=== PATIENT | female | born 1955 | race Caucasian/White ===

== ENCOUNTER 2019-08-22 07:50 | Outpatient (CLI) | payer BC, SELFPAY ==
[2019-08-22 13:29] LABS: Basophils Absolute Auto 0.1 K/mm3 (0.0-0.1); Basophils Percent Auto 1.4 % (0.2-1.2); Eosinophils Absolute Auto 0.4 K/mm3 (0-0.3); Hematocrit 40.9 % (37.0-47.0); Hemoglobin 13.1 g/dL (12.0-15.0); Immature Granulocyte Absolute 0.01 K/mm3 (0.00-0.031); Immature Granulocyte Percent A 0.2 % (0-0.5); Lymphocytes Absolute Auto 1.79 K/mm3 (0.9-3.2); Lymphocytes Percent Auto 30.7 % (18.3-44.2); Mean Corpuscular Hemoglobin 29.6 pg (26-34); Mean Corpuscular Volume 92.3 fl (80-100); Mean Platelet Volume 11.3 fl (7.4-10.4); Monocytes Absolute Auto 0.7 K/mm3 (0.1-0.6); Monocytes Percent Auto 11.1 % (2.6-8.5); Neutrophils Absolute Auto 2.9 K/mm3 (1.3-6.7); Neutrophils Percent Auto 49.6 % (45.5-73.1); Platelet Count Result 277 k/mm3 (150-375); Red Blood Count 4.43 M/mm3 (4.2-5.4); Red Cell Distribution Width 13.3 % (11.5-14.5); White Blood Count 5.8 K/mm3 (4.5-10.0)
[2019-08-22 13:32] LABS: Alanine Aminotransferase 17 U/L (4-35); Albumin Level 4.4 g/dL (3.5-5.1); Alkaline Phosphatase 86 U/L (38-126); Aspartate Amino Transferase 23 U/L (14-36); Bilirubin,Total 0.3 mg/dL (0.2-1.3); Blood Urea Nitrogen 17 mg/dL (7-17); Calcium 9.6 mg/dL (8.4-10.2); Carbon Dioxide 28 mmol/L (22-30); Chloride 99 mmol/L (98-107); Estimated Glomerular Filt Rate > 60; Glucose 81 mg/dL (65-105); Potassium 4.4 mmol/L (3.4-5.0); Sodium 137 mmol/L (137-145)
[2019-08-22 13:48] LABS: Free T4 Free Thyroxine 1.49 ng/mL (0.78-2.19)
[2019-08-24 14:44] LABS: Homocysteine 7.3 umol/L (<10.4)
[2019-08-24 22:14] LABS: CRP, High Sensitivity 0.4 mg/L (***)
== END 2019-08-22 07:51 | disposition home or self-care (01) ==
PROVIDERS: PCP Internal Medicine; Visit Provider Internal Medicine
DX: E78.5 Hyperlipidemia, unspecified (principal); E03.9 Hypothyroidism, unspecified; Z79.899 Other long term (current) drug therapy
CPT/HCPCS: 36415; 80048; 80076; 83090; 84439; 84443; 85025; 86141

== ENCOUNTER → 2019-09-12 07:08 | Outpatient (CLI) | payer BC, SELFPAY ==
--- NOTE | ~2019-09-12 | MM_ITS ---
EXAMINATION: MM screening [facility] BI w nj HISTORY: Screening mammogram TECHNIQUE: Craniocaudal and mediolateral oblique 3-D tomosynthesis images were obtained and synthetic 2-D images were generated. CAD analysis was submitted and interpreted. COMPARISON: Comparison to multiple prior studies sequentially, with oldest reviewed study dated 03/13. BREAST PARENCHYMAL COMPOSITION: There are scattered areas of fibroglandular density. FINDINGS: Bilateral breast asymmetries are stable There is no evidence of suspicious mass, calcificat ion, or architectural distortion to suggest malignancy in either breast. There has been no suspicious interval change. IMPRESSION: 1. No mammographic evidence of malignancy. 2. Recommend routine screening mammography in one year. BI-RADS Category 1: Negative Reviewed, dictated and finalized at location A. 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
== END ==
PROVIDERS: Visit Provider Obstetrics & Gynecology
DX: Z12.31 Encounter for screening mammogram for malignant neoplasm of breast (principal)
CPT/HCPCS: 77063; 77067

== ENCOUNTER 2019-12-24 06:41 | Outpatient (CLI) | payer BC, SELFPAY ==
[2019-12-24 07:29] LABS: Basophils Absolute Auto 0.1 K/mm3 (0.0-0.1); Basophils Percent Auto 1.2 % (0.2-1.2); Eosinophils Absolute Auto 0.5 K/mm3 (0-0.3); Hematocrit 40.6 % (37.0-47.0); Hemoglobin 13.3 g/dL (12.0-15.0); Immature Granulocyte Absolute 0.01 K/mm3 (0.00-0.031); Immature Granulocyte Percent A 0.2 % (0-0.5); Lymphocytes Absolute Auto 2.16 K/mm3 (0.9-3.2); Lymphocytes Percent Auto 36.1 % (18.3-44.2); Mean Corpuscular HGB Conc 32.8 g/dl (32-36); Mean Corpuscular Hemoglobin 28.9 pg (26-34); Mean Corpuscular Volume 88.1 fl (80-100); Mean Platelet Volume 10.6 fl (7.4-10.4); Monocytes Absolute Auto 0.7 K/mm3 (0.1-0.6); Neutrophils Absolute Auto 2.5 K/mm3 (1.3-6.7); Neutrophils Percent Auto 42.5 % (45.5-73.1); Platelet Count Result 264 k/mm3 (150-375); Red Blood Count 4.61 M/mm3 (4.2-5.4); Red Cell Distribution Width 13.4 % (11.5-14.5)
[2019-12-24 07:50] LABS: Blood Urea Nitrogen 15 mg/dL (7-17); Carbon Dioxide 26 mmol/L (22-30); Chloride 105 mmol/L (98-107); Cholesterol 168 mg/dL (0-200); Estimated Glomerular Filt Rate > 60; Glucose 94 mg/dL (65-105); HDL Direct 62 mg/dL; Potassium 4.1 mmol/L (3.4-5.0); Sodium 138 mmol/L (137-145); Triglycerides 112 mg/dL (<150)
[2019-12-24 08:01] LABS: LDL Cholesterol Direct 78 mg/dL
[2019-12-24 08:20] LABS: Thyroid Stimulating Hormone 0.107 uIU/mL (0.465-4.680)
[2019-12-24 08:27] LABS: Free T4 Free Thyroxine 1.45 ng/mL (0.78-2.19)
== END 2019-12-24 06:42 | disposition home or self-care (01) ==
PROVIDERS: PCP Internal Medicine; Visit Provider Internal Medicine
DX: E03.9 Hypothyroidism, unspecified (principal)
CPT/HCPCS: 36415; 80048; 80061; 84439; 84443; 85025

== ENCOUNTER → 2020-02-09 07:24 | Outpatient (CLI) | payer BC, SELFPAY ==
--- NOTE | ~2020-02-09 | XR_ITS ---
EXAMINATION: XR hip RT min 2V DATE: 02/09/2020 07:44 INDICATION: Right hip pain. TECHNIQUE: 2 views of right hip were obtained. COMPARISON: None. FINDINGS: Bone alignment is normal. No fracture. There is mild right hip osteoarthritis. IMPRESSION: 1. Mild right hip osteoarthritis. Reviewed, dictated and finalized at location A.
== END ==
PROVIDERS: PCP Internal Medicine; Visit Provider Internal Medicine
DX: M16.11 Unilateral primary osteoarthritis, right hip (principal)
CPT/HCPCS: 73502

== ENCOUNTER 2020-04-19 07:36 | Outpatient (CLI) | payer BC, SELFPAY ==
[2020-04-19 08:26] LABS: Alanine Aminotransferase 16 U/L (4-35); Albumin Level 4.4 g/dL (3.5-5.1); Alkaline Phosphatase 80 U/L (38-126); Anion Gap 10 mmol/L (8-16); Aspartate Amino Transferase 22 U/L (14-36); Bilirubin,Total 0.5 mg/dL (0.2-1.3); Blood Urea Nitrogen 11 mg/dL (7-17); Calcium 9.5 mg/dL (8.4-10.2); Carbon Dioxide 29 mmol/L (22-30); Chloride 102 mmol/L (98-107); Cholesterol 152 mg/dL (0-200); Estimated Glomerular Filt Rate > 60; Glucose 100 mg/dL (65-105); HDL Direct 62 mg/dL; Potassium 4.1 mmol/L (3.4-5.0); Sodium 141 mmol/L (137-145); Triglycerides 111 mg/dL (<150)
[2020-04-19 08:27] LABS: Hemoglobin A1C 5.3 % (<5.7)
[2020-04-19 08:38] LABS: LDL Cholesterol Direct 66 mg/dL
[2020-04-19 08:56] LABS: Thyroid Stimulating Hormone 0.117 uIU/mL (0.465-4.680)
[2020-04-19 08:58] LABS: Free T4 Free Thyroxine 1.55 ng/mL (0.78-2.19)
[2020-04-22 06:37] LABS: Homocysteine 5.7 umol/L (<10.4)
== END 2020-04-19 07:37 | disposition home or self-care (01) ==
PROVIDERS: PCP Internal Medicine; Visit Provider Internal Medicine
DX: Z79.899 Other long term (current) drug therapy (principal); E78.2 Mixed hyperlipidemia; E03.9 Hypothyroidism, unspecified; R79.89 Other specified abnormal findings of blood chemistry
CPT/HCPCS: 36415; 80053; 80061; 83036; 83090; 84439; 84443

== ENCOUNTER 2020-09-19 07:12 | Outpatient (CLI) | payer MEDICARE, SELFPAY ==
[2020-09-19 08:00] LABS: Anion Gap 4 mmol/L (8-16); Blood Urea Nitrogen 14 mg/dL (7-17); Calcium 9.1 mg/dL (8.4-10.2); Carbon Dioxide 31 mmol/L (22-30); Chloride 106 mmol/L (98-107); Cholesterol 161 mg/dL (0-200); Estimated Glomerular Filt Rate > 60; Glucose 93 mg/dL (65-105); HDL Direct 65 mg/dL; Sodium 141 mmol/L (137-145); Triglycerides 92 mg/dL (<150)
[2020-09-19 08:11] LABS: LDL Cholesterol Direct 67 mg/dL
[2020-09-19 08:30] LABS: Thyroid Stimulating Hormone < 0.015 uIU/mL (0.465-4.680)
== END 2020-09-19 07:13 | disposition home or self-care (01) ==
PROVIDERS: PCP Internal Medicine; Visit Provider Internal Medicine
DX: E03.9 Hypothyroidism, unspecified (principal); E78.2 Mixed hyperlipidemia; Z79.899 Other long term (current) drug therapy
CPT/HCPCS: 36415; 80048; 80061; 84439; 84443

== ENCOUNTER → 2020-11-29 17:39 | Outpatient (CLI) | payer MEDICARE, BC, SELFPAY ==
--- NOTE | ~2020-11-29 | DEXA_ITS ---
Bone Density Report Name: Annemarie Parker Age: 65 Sex: Female Ethnicity: White Date of : 1955 Indication: osteopenia; parental hip fracture; height loss; postmenopausal Referring Provider: Romaine, Laly Gutierrez Study: Bone densitometry was performed. Exam Date: November 29, 2020 Accession number: [id number] Bone Density: Region BMD T-score Z-score Classification Femoral Neck (Left) 0.659 -1.7 -0.2 Osteopenia Total Hip (Left) 0.780 -1.3 -0.1 Osteopenia Femoral Neck (Right) 0.734 -1.0 0.5 Normal Total Hip (Right) 0.801 -1.2 0.1 Osteopenia Total Hip Mean 0.791 -1.3 0.0 Osteopenia World Health Organization criteria for BMD impression classify patients as: Normal (T-score at or above -1.0), Osteopenia (T-score between -1.0 and -2.5), or Osteoporosis (T-score at or below -2.5). 10-year Fracture Risk(1): Major Osteoporotic Fracture 18% Hip Fracture 1.4% Reported Risk Factors: [place] (), Neck BMD=0.659, BMI=27.0, parental fracture (1) FRAX(R) Version 3.08. Fracture probability calculated for an untreated patient. Fracture probability may be lower if the patient has received treatment. Previous Exams: Region Exam Age BMD T-score BMD Change BMD Change Date g/cm2 vs Baseline vs Previous Total Hip(Left) 11/29/2020 65 0.780 -1.3 -0.027 -0.039* 09/01/2018 63 0.819 -1.0 0.012 0.017 06/19/2015 60 0.802 -1.1 -0.005 -0.005 10/06/2003 48 0.807 -1.1 Total Hip(Right) 11/29/2020 65 0.801 -1.2 0.011 -0.006 09/01/2018 63 0.807 -1.1 0.017 -0.009 06/19/2015 60 0.816 -1.0 0.026 0.026 10/06/2003 48 0.791 -1.2 *Denotes significance at 95% confidence level, LSC for Total Hip = 0.027 g/cm2 Clinical Information Provided by Patient: Parent has had a hip fracture Has used the following medications: Vitamin D, Calcium Patient maximum height was 68 Menopause Age: 47 No regular weight bearing exercise Drinks caffeinated beverages Onset of menses at age 14 Number of children 2 Impression: The patient has low bone mass, based on the Left Femoral Neck T-score. The patient has an estimated ten-year risk of hip fracture of 1.4% and an estimated ten-year risk of major fracture of 18%, based on the WHO FRAX algorithm. The patient has risk factors, including: parental hip fracture. The BMD for the Total Hip(Left) decreased, changing by -0.039 since the last DXA exam.
--- NOTE | ~2020-11-29 | MM_ITS ---
EXAMINATION: MM screening [facility] BI w nj HISTORY: Screening mammogram TECHNIQUE: Craniocaudal and mediolateral oblique 3-D tomosynthesis images were obtained and synthetic 2-D images were generated. CAD analysis was submitted and interpreted. COMPARISON: 09/12/2019, 09/01/2018, 06/29/2017 BREAST PARENCHYMAL COMPOSITION: The breasts are heterogeneously dense, which may obscure small masses . FINDINGS: There is no evidence of suspicious mass, calcification, or architectural distortion to sugg est malignancy in either breast. There has been no suspicious interval change. IMPRESSION: 1. No mammographic evidence of malignancy. 2. Recommend routine screening mammography in one year. BI-RADS Category 1: Negative Reviewed, dictated and finalized at location A.
== END ==
PROVIDERS: Visit Provider Obstetrics & Gynecology
DX: Z12.31 Encounter for screening mammogram for malignant neoplasm of breast (principal); Z78.0 Asymptomatic menopausal state
CPT/HCPCS: 77063; 77067; 77080

== ENCOUNTER 2021-04-16 07:38 | Outpatient (CLI) | payer MEDICARE, BC, SELFPAY ==
[2021-04-16 08:27] LABS: Alanine Aminotransferase 24 U/L (4-35); Albumin Level 4.6 g/dL (3.5-5.1); Alkaline Phosphatase 88 U/L (38-126); Anion Gap 9 mmol/L (8-16); Aspartate Amino Transferase 27 U/L (14-36); Bilirubin,Total 0.7 mg/dL (0.2-1.3); Blood Urea Nitrogen 14 mg/dL (7-17); Calcium 9.4 mg/dL (8.4-10.2); Carbon Dioxide 25 mmol/L (22-30); Chloride 105 mmol/L (98-107); Cholesterol 182 mg/dL (0-200); Estimated Glomerular Filt Rate > 60; Glucose 96 mg/dL (65-110); HDL Direct 78 mg/dL; Potassium 4.2 mmol/L (3.4-5.0); Sodium 139 mmol/L (137-145); Triglycerides 118 mg/dL (<150)
[2021-04-16 08:28] LABS: Hemoglobin A1C 5.5 % (<5.7)
[2021-04-16 08:36] LABS: Add Urine Microscopic? YES; Appearance Urine Clear (Clear); Bilirubin Urine Negative (Negative); Blood Urine 1+ (Negative); Color Urine Straw (Yellow); Glucose Urine UA Negative (Negative); Ketones Urine Negative (Negative); Leukocyte Esterase Ur 1+ LEU/UL (Negative); Nitrate Urine Negative (Negative); Protein Urine Negative (Negative); RBC Urine 0-2 /hpf (0-2); Specific Grav Ur 1.008 (1.001-1.035); Squamous Epithelial Cell Urine Rare /hpf (Few); Urobilinogen Urine Negative mg/dL (<2.0)
[2021-04-16 08:39] LABS: LDL Cholesterol Direct 80 mg/dL
[2021-04-16 08:57] LABS: Thyroid Stimulating Hormone 0.068 uIU/mL (0.465-4.680)
[2021-04-16 09:21] LABS: Free T4 Free Thyroxine 1.78 ng/mL (0.78-2.19)
== END 2021-04-16 07:39 | disposition home or self-care (01) ==
PROVIDERS: PCP Internal Medicine; Visit Provider Internal Medicine
DX: E78.2 Mixed hyperlipidemia (principal); E03.9 Hypothyroidism, unspecified; Z51.81 Encounter for therapeutic drug level monitoring; Z79.899 Other long term (current) drug therapy
CPT/HCPCS: 36415; 80053; 80061; 81001; 83036; 84439; 84443; 87086

== ENCOUNTER 2021-10-28 06:47 | Outpatient (CLI) | payer MEDICARE, SELFPAY ==
[2021-10-28 07:14] LABS: Basophils Absolute Auto 0.1 K/mm3 (0.0-0.1); Basophils Percent Auto 1.8 % (0.2-1.2); Eosinophils Absolute Auto 0.4 K/mm3 (0-0.3); Eosinophils Percent Auto 6.9 % (0-4.4); Hematocrit 39.4 % (37.0-47.0); Hemoglobin 12.9 g/dL (12.0-15.0); Immature Granulocyte Absolute 0.01 K/mm3 (0.00-0.031); Immature Granulocyte Percent A 0.2 % (0-0.5); Lymphocytes Absolute Auto 2.13 K/mm3 (0.9-3.2); Lymphocytes Percent Auto 37.5 % (18.3-44.2); Mean Corpuscular HGB Conc 32.7 g/dl (32-36); Mean Corpuscular Hemoglobin 29.5 pg (26-34); Mean Platelet Volume 9.8 fl (7.4-10.4); Monocytes Absolute Auto 0.8 K/mm3 (0.1-0.6); Monocytes Percent Auto 14.3 % (2.6-8.5); Neutrophils Absolute Auto 2.2 K/mm3 (1.3-6.7); Neutrophils Percent Auto 39.3 % (45.5-73.1); Platelet Count Result 258 k/mm3 (150-375); Red Blood Count 4.38 M/mm3 (4.2-5.4); Red Cell Distribution Width 12.8 % (11.5-14.5); White Blood Count 5.7 K/mm3 (4.5-10.0)
[2021-10-28 07:30] LABS: Alanine Aminotransferase 16 U/L (4-35); Albumin Level 4.4 g/dL (3.5-5.1); Alkaline Phosphatase 69 U/L (38-126); Anion Gap 6 mmol/L (8-16); Aspartate Amino Transferase 25 U/L (14-36); Bilirubin,Total 0.5 mg/dL (0.2-1.3); Blood Urea Nitrogen 13 mg/dL (7-17); Calcium 8.9 mg/dL (8.4-10.2); Carbon Dioxide 28 mmol/L (22-30); Chloride 104 mmol/L (98-107); Cholesterol 143 mg/dL (0-200); Estimated Glomerular Filt Rate > 60; Glucose 89 mg/dL (65-110); HDL Direct 60 mg/dL; Sodium 138 mmol/L (137-145); Triglycerides 56 mg/dL (<150)
[2021-10-28 07:41] LABS: LDL Cholesterol Direct 51 mg/dL
[2021-10-28 07:58] LABS: Thyroid Stimulating Hormone 0.162 uIU/mL (0.465-4.680)
[2021-10-28 07:59] LABS: Free T4 Free Thyroxine 1.56 ng/mL (0.78-2.19); Vitamin D 25 Hydroxy 68.8 ng/mL
== END 2021-10-28 06:48 | disposition home or self-care (01) ==
LOC: ANHLAB 06:49
PROVIDERS: PCP Internal Medicine; Visit Provider Internal Medicine
DX: E78.2 Mixed hyperlipidemia (principal); Z51.81 Encounter for therapeutic drug level monitoring; Z79.899 Other long term (current) drug therapy; E03.9 Hypothyroidism, unspecified; E55.9 Vitamin D deficiency, unspecified
CPT/HCPCS: 36415; 80053; 80061; 82306; 84439; 84443; 85025

== ENCOUNTER → 2022-01-29 15:06 | Outpatient (CLI) | payer MEDICARE, BC, SELFPAY ==
--- NOTE | ~2022-01-29 | XR_ITS ---
XR lumbar spine 2-3V 01/29/2022 15:24 Indication: Back pain Procedure: 3 views lumbar spine Comparison: No prior studies for comparison. Findings: There is scoliosis. Márquez rods are noted overlying the lower thoracic and lumbar spine . There is disc narrowing at all lumbar levels. No acute fracture or medical malalignment. No evidenc e for spondylolisthesis. There is moderate lower lumbar facet hypertrophy. There is ventral osteophyt e formation at L3-4 and L4-5. Impression: 1: Moderate lumbar spondylosis with levoscoliosis. Reviewed, dictated and finalized at location A. Impression: 1: Moderate lumbar spondylosis with levoscoliosis.
--- NOTE | ~2022-01-29 | XR_ITS ---
XR thoracic spine 3V DATE: 01/29/2022 15:25 INDICATION: Back pain TECHNIQUE: AP, lateral, swimmer views COMPARISON: None FINDINGS: There is 70 degrees rotatory dextroscoliosis measured from T5 to T11. Bilateral spinal rods from the mid to lower thoracic spine on the right and from the mid thoracic to the upper lumbar spine on the left. Diffuse osteopenia. No apparent fracture or bone destruction of the thoracic spine is noted. Mild degenerative change. No paraspinal soft tissue thickening is detected. IMPRESSION: 17 degrees rotatory dextroscoliosis of the thoracic spine Osteopenia Mild degenerative change. Reviewed, dictated and finalized at location A.
--- NOTE | ~2022-01-29 | XR_ITS ---
XR_CERV2-3V_CR 01/29/2022 15:24 Indication: Cervicalgia Procedure: 3 view cervical spine Comparison: No prior studies for comparison. Findings: Vertebral body heights are maintained. Mild degenerative disc disease at C5-6 and C6-7. The re is mild multilevel uncinate hypertrophy. No prevertebral soft tissue swelling. No fracture or trau matic malalignment. Odontoid process within normal limits. Impression: 1: Mild cervical spondylosis. Reviewed, dictated and finalized at location A. Impression: 1: Mild cervical spondylosis.
== END ==
PROVIDERS: PCP Internal Medicine; Visit Provider Internal Medicine
DX: M47.815 Spondylosis without myelopathy or radiculopathy, thoracolumbar region (principal); M41.9 Scoliosis, unspecified; M47.813 Spondylosis without myelopathy or radiculopathy, cervicothoracic region
CPT/HCPCS: 72040; 72072; 72100

== ENCOUNTER → 2022-03-05 12:35 | Outpatient (CLI) | payer MEDICARE, BC, SELFPAY ==
--- NOTE | ~2022-03-05 | MM_ITS ---
EXAMINATION: MM screening [facility] BI w nj HISTORY: Screening mammogram TECHNIQUE: Craniocaudal and mediolateral oblique 3-D tomosynthesis images were obtained and synthetic 2-D images were generated. CAD analysis was submitted and interpreted. COMPARISON: 11/29/2020, 09/08/2019, , 06/29/2017 bilateral screening mammogram examinations BREAST PARENCHYMAL COMPOSITION: The breasts are heterogeneously dense, which may obscure small masses . FINDINGS: Stable mild fibroglandular asymmetry. There is no evidence of suspicious mass, calcificatio n, or architectural distortion to suggest malignancy in either breast. There has been no suspicious i nterval change. IMPRESSION: 1. No mammographic evidence of malignancy. 2. Recommend routine screening mammography in one year. BI-RADS Category 2: Benign finding(s). Reviewed, dictated and finalized at location A.
== END ==
PROVIDERS: PCP Nurse Practitioner Obstetrics & Gynecology; Visit Provider Nurse Practitioner Obstetrics & Gynecology
DX: Z12.31 Encounter for screening mammogram for malignant neoplasm of breast (principal)
CPT/HCPCS: 77063; 77067

== ENCOUNTER 2022-05-14 07:27 | Outpatient (CLI) | payer MEDICARE, SELFPAY ==
[2022-05-14 07:44] LABS: Basophils Absolute Auto 0.1 K/mm3 (0.0-0.1); Basophils Percent Auto 1.6 % (0.2-1.2); Eosinophils Absolute Auto 0.3 K/mm3 (0-0.3); Eosinophils Percent Auto 4.7 % (0-4.4); Hematocrit 40.9 % (37.0-47.0); Hemoglobin 13.2 g/dL (12.0-15.0); Immature Granulocyte Absolute 0.01 K/mm3 (0.00-0.031); Immature Granulocyte Percent A 0.2 % (0-0.5); Lymphocytes Absolute Auto 1.94 K/mm3 (0.9-3.2); Lymphocytes Percent Auto 33.7 % (18.3-44.2); Mean Corpuscular HGB Conc 32.3 g/dl (32-36); Mean Corpuscular Hemoglobin 29.8 pg (26-34); Mean Corpuscular Volume 92.3 fl (80-100); Mean Platelet Volume 9.8 fl (7.4-10.4); Monocytes Absolute Auto 0.7 K/mm3 (0.1-0.6); Monocytes Percent Auto 12.7 % (2.6-8.5); Neutrophils Absolute Auto 2.7 K/mm3 (1.3-6.7); Neutrophils Percent Auto 47.1 % (45.5-73.1); Platelet Count Result 260 k/mm3 (150-375); Red Blood Count 4.43 M/mm3 (4.2-5.4); Red Cell Distribution Width 13.3 % (11.5-14.5); White Blood Count 5.8 K/mm3 (4.5-10.0)
[2022-05-14 07:50] LABS: Add Urine Microscopic? NO; Appearance Urine Clear (Clear); Bilirubin Urine Negative (Negative); Blood Urine Negative (Negative); Color Urine Straw (Yellow); Glucose Urine UA Negative (Negative); Ketones Urine Negative (Negative); Leukocyte Esterase Ur Negative LEU/UL (Negative); Nitrate Urine Negative (Negative); Protein Urine Negative (Negative); Urobilinogen Urine Negative mg/dL (<2.0)
[2022-05-14 07:58] LABS: Alanine Aminotransferase 20 U/L (6-35); Albumin Level 4.4 g/dL (3.5-5.1); Alkaline Phosphatase 69 U/L (38-126); Anion Gap 11 mmol/L (8-16); Aspartate Amino Transferase 24 U/L (14-36); Bilirubin,Total 0.5 mg/dL (0.2-1.3); Blood Urea Nitrogen 19 mg/dL (7-17); Calcium 8.9 mg/dL (8.4-10.2); Carbon Dioxide 29 mmol/L (22-30); Chloride 101 mmol/L (98-107); Cholesterol 164 mg/dL (0-200); Estimated Glomerular Filt Rate > 60; Glucose 93 mg/dL (65-110); HDL Direct 73 mg/dL; Potassium 3.9 mmol/L (3.4-5.0); Sodium 141 mmol/L (137-145); Triglycerides 62 mg/dL (<150)
[2022-05-14 08:08] LABS: LDL Cholesterol Direct 63 mg/dL
[2022-05-14 08:14] LABS: Hemoglobin A1C 5.4 % (<5.7)
[2022-05-14 08:28] LABS: Thyroid Stimulating Hormone 0.441 uIU/mL (0.465-4.680)
[2022-05-14 09:02] LABS: Free T4 Free Thyroxine 1.46 ng/mL (0.78-2.19)
== END 2022-05-14 07:28 | disposition home or self-care (01) ==
PROVIDERS: PCP Nurse Practitioner Obstetrics & Gynecology; Visit Provider Internal Medicine
DX: E03.9 Hypothyroidism, unspecified (principal); E78.2 Mixed hyperlipidemia; Z79.899 Other long term (current) drug therapy
CPT/HCPCS: 36415; 80053; 80061; 81003; 83036; 84439; 84443; 85025

== ENCOUNTER 2022-11-28 07:07 | Outpatient (CLI) | payer MEDICARE, SELFPAY ==
[2022-11-28 07:27] LABS: Basophils Absolute Auto 0.1 K/mm3 (0.0-0.1); Basophils Percent Auto 1.9 % (0.2-1.2); Eosinophils Absolute Auto 0.4 K/mm3 (0-0.3); Eosinophils Percent Auto 7.2 % (0-4.4); Hemoglobin 12.9 g/dL (12.0-15.0); Immature Granulocyte Absolute 0.01 K/mm3 (0.00-0.031); Immature Granulocyte Percent A 0.2 % (0-0.5); Lymphocytes Absolute Auto 1.65 K/mm3 (0.9-3.2); Lymphocytes Percent Auto 31.4 % (18.3-44.2); Mean Corpuscular HGB Conc 32.3 g/dl (32-36); Mean Corpuscular Hemoglobin 29.3 pg (26-34); Mean Corpuscular Volume 90.9 fl (80-100); Mean Platelet Volume 9.6 fl (7.4-10.4); Monocytes Absolute Auto 0.7 K/mm3 (0.1-0.6); Monocytes Percent Auto 12.8 % (2.6-8.5); Neutrophils Absolute Auto 2.4 K/mm3 (1.3-6.7); Neutrophils Percent Auto 46.5 % (45.5-73.1); Platelet Count Result 256 k/mm3 (150-375); Red Cell Distribution Width 12.9 % (11.5-14.5); White Blood Count 5.3 K/mm3 (4.5-10.0)
[2022-11-28 07:42] LABS: Alanine Aminotransferase 21 U/L (6-35); Albumin Level 4.3 g/dL (3.5-5.1); Alkaline Phosphatase 74 U/L (38-126); Anion Gap 5 mmol/L (8-16); Aspartate Amino Transferase 25 U/L (14-36); Bilirubin,Total 0.6 mg/dL (0.2-1.3); Blood Urea Nitrogen 14 mg/dL (7-17); Calcium 9.1 mg/dL (8.4-10.2); Carbon Dioxide 31 mmol/L (22-30); Chloride 102 mmol/L (98-107); Cholesterol 171 mg/dL (0-200); Estimated Glomerular Filt Rate > 60; Glucose 92 mg/dL (65-110); HDL Direct 80 mg/dL; Potassium 4.5 mmol/L (3.4-5.0); Sodium 138 mmol/L (137-145); Triglycerides 77 mg/dL (<150)
[2022-11-28 07:53] LABS: LDL Cholesterol Direct 65 mg/dL
[2022-11-28 08:03] LABS: Vitamin D 25 Hydroxy 61.4 ng/mL
[2022-11-28 08:10] LABS: Thyroid Stimulating Hormone 0.188 uIU/mL (0.465-4.680)
== END 2022-11-28 07:08 | disposition home or self-care (01) ==
PROVIDERS: PCP Internal Medicine; Visit Provider Internal Medicine
DX: E78.2 Mixed hyperlipidemia (principal); E03.9 Hypothyroidism, unspecified; E55.9 Vitamin D deficiency, unspecified; Z79.899 Other long term (current) drug therapy
CPT/HCPCS: 36415; 80053; 80061; 82306; 84439; 84443; 85025

== ENCOUNTER 2022-12-29 07:37 | Outpatient (CLI) | payer MEDICARE, SELFPAY ==
[2022-12-29 09:34] LABS: Free T4 Free Thyroxine 1.46 ng/mL (0.78-2.19)
[2022-12-29 09:44] LABS: Thyroid Stimulating Hormone 0.308 uIU/mL (0.465-4.680)
== END 2022-12-29 07:38 | disposition home or self-care (01) ==
PROVIDERS: PCP Internal Medicine; Visit Provider Internal Medicine
DX: E03.9 Hypothyroidism, unspecified (principal); Z79.899 Other long term (current) drug therapy
CPT/HCPCS: 36415; 84439; 84443

== ENCOUNTER → 2023-05-11 13:19 | Outpatient (CLI) | payer MEDICARE, SELFPAY ==
--- NOTE | ~2023-05-11 | MM_ITS ---
EXAMINATION: MM screening [facility] BI w nj HISTORY: Screening mammogram TECHNIQUE: Craniocaudal and mediolateral oblique 3-D tomosynthesis images were obtained and synthetic 2-D images were generated. CAD analysis was submitted and interpreted. COMPARISON: 03/05/2022, 11/29/2020, 09/08/2019 bilateral screening mammogram examinations BREAST PARENCHYMAL COMPOSITION: The breasts are heterogeneously dense, which may obscure small masses . FINDINGS: Occasional scattered benign calcifications. There is no evidence of suspicious mass, calcif ication, or architectural distortion to suggest malignancy in either breast. There has been no suspic ious interval change. IMPRESSION: 1. Benign findings. No mammographic evidence of malignancy. 2. Recommend routine screening mammography in one year. BI-RADS Category 2: Benign finding(s). Reviewed, dictated and finalized at location A.
== END ==
PROVIDERS: PCP Nurse Practitioner Obstetrics & Gynecology; Visit Provider Nurse Practitioner Obstetrics & Gynecology
DX: Z12.31 Encounter for screening mammogram for malignant neoplasm of breast (principal)
CPT/HCPCS: 77063; 77067

== ENCOUNTER 2023-06-15 08:05 | Outpatient (CLI) | payer MEDICARE, SELFPAY ==
[2023-06-15 09:06] LABS: Appearance Urine Clear (Clear); Bacteria Urine None Seen /hpf; Bilirubin Urine Negative (Negative); Blood Urine Negative (Negative); Color Urine Yellow (Yellow); Glucose Urine UA Negative (Negative); Ketones Urine Negative (Negative); Leukocyte Esterase Ur 1+ LEU/UL (Negative); Nitrate Urine Negative (Negative); Non Pathogenic Casts 0-2; Protein Urine Negative (Negative); RBC Urine 0-2 /hpf (0-2); Squamous Epithelial Cell Urine None seen /hpf (Few); Urobilinogen Urine 0.2 mg/dL (<2.0)
[2023-06-15 09:15] LABS: Alanine Aminotransferase 16 U/L (6-35); Albumin Level 4.2 g/dL (3.5-5.1); Alkaline Phosphatase 86 U/L (38-126); Anion Gap 9 mmol/L (8-16); Aspartate Amino Transferase 22 U/L (14-36); Bilirubin,Total 0.5 mg/dL (0.2-1.3); Blood Urea Nitrogen 16 mg/dL (7-17); Calcium 9.3 mg/dL (8.4-10.2); Carbon Dioxide 28 mmol/L (22-30); Chloride 103 mmol/L (98-107); Cholesterol 171 mg/dL (0-200); Estimated Glomerular Filt Rate > 60; Glucose 85 mg/dL (65-110); HDL Direct 80 mg/dL; Potassium 4.2 mmol/L (3.4-5.0); Sodium 140 mmol/L (137-145); Triglycerides 60 mg/dL (<150)
[2023-06-15 09:18] LABS: Hemoglobin A1C 5.1 % (<5.7)
[2023-06-15 09:27] LABS: LDL Cholesterol Direct 68 mg/dL
[2023-06-15 09:45] LABS: Free T4 Free Thyroxine 1.31 ng/mL (0.78-2.19)
[2023-06-15 09:45] LABS: Add Urine Microscopic? YES
== END 2023-06-15 08:06 | disposition home or self-care (01) ==
PROVIDERS: PCP Nurse Practitioner Obstetrics & Gynecology; Visit Provider Internal Medicine
DX: Z13.1 Encounter for screening for diabetes mellitus (principal); Z79.899 Other long term (current) drug therapy; E03.9 Hypothyroidism, unspecified; E78.2 Mixed hyperlipidemia
CPT/HCPCS: 36415; 80053; 80061; 81001; 83036; 84439; 84443; 87086

== ENCOUNTER 2023-12-28 07:54 | Outpatient (CLI) | payer MEDICARE, SELFPAY ==
[2023-12-28 13:43] LABS: Appearance Urine Clear (Clear); Bacteria Urine None Seen /hpf; Bilirubin Urine Negative (Negative); Blood Urine Negative (Negative); Color Urine Yellow (Yellow); Glucose Urine UA Negative (Negative); Ketones Urine Negative (Negative); Leukocyte Esterase Ur 2+ LEU/UL (Negative); Nitrate Urine Negative (Negative); Non Pathogenic Casts 0-2; Protein Urine Negative (Negative); RBC Urine 0-2 /hpf (0-2); Squamous Epithelial Cell Urine None Seen /hpf (Few); Urobilinogen Urine 0.2 mg/dL (<2.0)
[2023-12-28 13:50] LABS: Alanine Aminotransferase 17 U/L (6-35); Albumin Level 4.4 g/dL (3.5-5.1); Alkaline Phosphatase 92 U/L (38-126); Anion Gap 6 mmol/L (4-12); Aspartate Amino Transferase 47 U/L (14-36); Bilirubin,Total 0.7 mg/dL (0.2-1.3); Blood Urea Nitrogen 16 mg/dL (7-17); Calcium 9.2 mg/dL (8.4-10.2); Carbon Dioxide 28 mmol/L (22-30); Chloride 104 mmol/L (98-107); Cholesterol 183 mg/dL (0-200); Estimated Glomerular Filt Rate > 60; Glucose 86 mg/dL (65-110); HDL Direct 74 mg/dL; Potassium 4.2 mmol/L (3.4-5.0); Sodium 138 mmol/L (137-145); Triglycerides 104 mg/dL (<150)
[2023-12-28 13:54] LABS: Add Urine Microscopic? YES
[2023-12-28 14:01] LABS: LDL Cholesterol Direct 80 mg/dL
[2023-12-28 14:06] LABS: Free T4 Free Thyroxine 1.19 ng/mL (0.78-2.19); Vitamin D 25 Hydroxy 59.8 ng/mL
[2023-12-28 14:19] LABS: Thyroid Stimulating Hormone 0.326 uIU/mL (0.465-4.680)
== END 2023-12-28 07:55 | disposition home or self-care (01) ==
LOC: ANHWCLAB 07:54
PROVIDERS: PCP Internal Medicine; Visit Provider Internal Medicine
DX: E03.9 Hypothyroidism, unspecified (principal); E55.9 Vitamin D deficiency, unspecified; Z79.899 Other long term (current) drug therapy; E78.2 Mixed hyperlipidemia
CPT/HCPCS: 36415; 80053; 80061; 81001; 82306; 84439; 84443; 87086

== ENCOUNTER 2024-06-30 07:45 | Outpatient (CLI) | payer MEDICARE, SELFPAY ==
[2024-06-30 08:09] LABS: Basophils Absolute Auto 0.1 K/mm3 (0.0-0.1); Basophils Percent Auto 1.7 % (0.2-1.2); Eosinophils Absolute Auto 0.3 K/mm3 (0-0.3); Hematocrit 39.8 % (37.0-47.0); Hemoglobin 13.1 g/dL (12.0-15.0); Immature Granulocyte Absolute 0.01 K/mm3 (0.00-0.031); Immature Granulocyte Percent A 0.2 % (0-0.5); Lymphocytes Absolute Auto 1.84 K/mm3 (0.9-3.2); Lymphocytes Percent Auto 35.2 % (18.3-44.2); Mean Corpuscular HGB Conc 32.9 g/dl (32-36); Mean Corpuscular Hemoglobin 29.6 pg (26-34); Mean Corpuscular Volume 89.8 fl (80-100); Mean Platelet Volume 9.9 fl (7.4-10.4); Monocytes Absolute Auto 0.7 K/mm3 (0.1-0.6); Monocytes Percent Auto 12.8 % (2.6-8.5); Neutrophils Absolute Auto 2.4 K/mm3 (1.3-6.7); Neutrophils Percent Auto 45.1 % (45.5-73.1); Platelet Count Result 273 k/mm3 (150-375); Red Blood Count 4.43 M/mm3 (4.2-5.4); Red Cell Distribution Width 12.8 % (11.5-14.5); White Blood Count 5.2 K/mm3 (4.5-10.0)
[2024-06-30 08:20] LABS: Alanine Aminotransferase 18 U/L (6-35); Albumin Level 4.2 g/dL (3.5-5.1); Alkaline Phosphatase 100 U/L (38-126); Anion Gap 5 mmol/L (4-12); Aspartate Amino Transferase 23 U/L (14-36); Bilirubin,Total 0.6 mg/dL (0.2-1.3); Blood Urea Nitrogen 15 mg/dL (7-17); Calcium 9.4 mg/dL (8.4-10.2); Carbon Dioxide 27 mmol/L (22-30); Chloride 106 mmol/L (98-107); Cholesterol 197 mg/dL (0-200); Estimated Glomerular Filt Rate > 60; Glucose 91 mg/dL (65-110); HDL Direct 72 mg/dL; Potassium 4.2 mmol/L (3.4-5.0); Sodium 138 mmol/L (137-145); Triglycerides 140 mg/dL (<150)
[2024-06-30 08:31] LABS: LDL Cholesterol Direct 80 mg/dL
[2024-06-30 08:47] LABS: Thyroid Stimulating Hormone 0.395 uIU/mL (0.465-4.680)
[2024-06-30 09:03] LABS: Free T4 Free Thyroxine 1.33 ng/dL (0.78-2.19)
== END 2024-06-30 07:46 | disposition home or self-care (01) ==
PROVIDERS: PCP Internal Medicine; Visit Provider Internal Medicine
DX: E78.2 Mixed hyperlipidemia (principal); E03.9 Hypothyroidism, unspecified; Z79.899 Other long term (current) drug therapy
CPT/HCPCS: 36415; 80053; 80061; 84439; 84443; 85025

== ENCOUNTER 2024-07-18 10:07 | Outpatient (CLI) | payer MEDICARE, SELFPAY ==
--- NOTE | ~2024-07-18 | XR_ITS ---
EXAMINATION: XR wrist RT min 3V DATE: 07/18/2024 10:22 INDICATION: Right wrist pain TECHNIQUE: Posteroanterior, ulnar deviation, oblique, and lateral views of the right wrist were obtai lia. COMPARISON: none FINDINGS: Bone alignment is normal. No fracture. Mild osteoarthritis at the first carpometacarpal joint and min imal to mild osteoarthritis at the metacarpophalangeal and interphalangeal joints. No erosions to sug gest inflammatory arthritis. Soft tissues are unremarkable. IMPRESSION: 1. Typical distribution of minimal to mild osteoarthritis at the right hand. Reviewed, dictated and finalized at location B. OLOGIST
== END 2024-07-18 10:08 | disposition home or self-care (01) ==
LOC: MICIMG 10:07
PROVIDERS: PCP Internal Medicine; Visit Provider Internal Medicine
DX: M19.031 Primary osteoarthritis, right wrist (principal)
CPT/HCPCS: 73110

== ENCOUNTER 2024-09-08 07:12 | Outpatient (CLI) | payer MEDICARE, SELFPAY ==
--- NOTE | ~2024-09-08 | MM_ITS ---
EXAMINATION: MM screening [facility] BI w nj HISTORY: Screening TECHNIQUE: Craniocaudal and mediolateral oblique 3-D tomosynthesis images were obtained and synthetic 2-D images were generated. CAD analysis was submitted and interpreted. COMPARISON: Comparison to multiple prior studies sequentially, with oldest reviewed study dated 06/19. BREAST PARENCHYMAL COMPOSITION: Not dense: There are scattered areas of fibroglandular density. FINDINGS: There is a developing asymmetry in the medial aspect of the left breast, middle third. The right breast is stable without evidence for malignancy. IMPRESSION: 1. Developing left breast asymmetry. 2. Additional mammographic views and possible breast ultrasound are recommended. BI-RADS Category 0: Incomplete: Needs additional imaging evaluation. Reviewed, dictated and finalized at location B. 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 Developing left breast asymmetry. 2. Additional mammographic views and possible breast ultrasound are recommended . BI-RADS Category 0: Incomplete: Needs additional imaging evaluation.
== END 2024-09-08 07:13 | disposition home or self-care (01) ==
PROVIDERS: PCP Internal Medicine; Visit Provider Obstetrics & Gynecology
DX: Z12.31 Encounter for screening mammogram for malignant neoplasm of breast (principal); R92.8 Other abnormal and inconclusive findings on diagnostic imaging of breast
CPT/HCPCS: 77063; 77067

== ENCOUNTER 2024-09-21 08:15 | Outpatient (CLI) | payer MEDICARE, SELFPAY ==
--- OUTSIDE RECORDS SUMMARY | 2024-09-21 08:24 | XMS_ITS | Referral Summary ---
Author Organization [facility] Address [address] [place] [address] Care Team Providers Care Lead Generation Marketing Manager Name Role Phone Pito Malave MD Primary Care Provider [phone] Source Comments [facility],non-[facility] Affiliates and Associated Physician Practices is amultiple site organization consisting of ambulatory clinics and hospital sitesin [place], [place], [place] and [place]. This disclosure is being madepursuant to the Care Everywhere program and may not contain all information available regarding this patient. Last updated 18.[facility] Allergies Active Allergy Reactions Criticality Noted Date Comments Penicillins Rash Medium 09/18/2015 Active Problems Problem Noted Date Diagnosed Date Basal cell carcinoma of skin of scalp and neck 0 11/20/2015 Social History Tobacco Use Types Packs/Day Years Used Date Smoking Tobacco: Former Alcohol Use Standard Drinks/Week Comments Yes 0 (1 standard drink = 0.6 oz pur e alcohol) Sex and Gender Information Value Date Recorded Sex Assigned at Not on file Gender Identity Not on file Sexual Orientation Not on file Last Filed Vital Signs Vital Sign Reading Time Taken Comments Blood Pressure 113/77 11/20/2015 12:06 PM CDT Pulse 74 11/20/2015 12:06 PM CDT Temperature - - Respiratory Rate - - Oxygen Saturation 100% 11/20/2015 12:06 PM CDT Inhaled Oxygen Concentration - - Weight 82.6 kg (182 lb) 11/20/2015 7:15 AM CDT Height 172.7 cm (5' 8 ) 11/20/2015 7:15 AM CDT Body Mass Index 27.67 11/20/2015 7:15 AM CDT Plan of Treatment Not on file Care Teams Lead Generation Marketing Manager Relationship Specialty Start Date End Date Pito Malave MD [address] [place] [address] PCP - General 05/01/08
--- OUTSIDE RECORDS SUMMARY | 2024-09-21 08:24 | XMS_ITS | Data Portability ---
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 Patient will come back in a year unless there are new symptoms. [email or web address] Not available 10/10/2020 14:28:38 12/25/2021 12/25/2021 Annual gynecological exam performed. Patient will come back in a year unless there are new symptoms. Not available 12/25/2021 10:09:13 06/09/2024 06/09/2024 Annual gynecological exam performed. Patient will come back in a year unless there are new symptoms. [email or web address] Not available 06/09/2024 10:03:29 Plan of Treatment Reminders Order Date Submit Date Provider Last Modified By Organization Details Last Modified Time Details Appointments None recorded. Lab None recorded. Referral None recorded. Procedures None recorded. Surgeries None recorded. Imaging DEXA, axial skeleton + vertebral fracture assessment 2023 024 [facility], [address], [place], [address], 5 04:11:42 MAMMO, screening, digital, bilateral 2023 024 [facility], [address], [place], [address], 4 04:07:31 DEXA, axial skeleton + vertebral fracture assessment 2020 021 [email or web address] [place] [facility], [address], [address] [address], [place], [address], 16:56:23 Medication Orders None recorded. Patient TargetsNo targets recorded. Patient InstructionsNo instructions recorded. Reason for Referral None Reported. Results Created Date Observation Date Name Description Value Unit Range Abnormal Flag Note LastModifiedBy Organization Detail LastModifiedTime 12/26/19 21 12/25/2020 CBC w/ auto diff WBC 6.1 10'3/ uL 3.6-[address] [facility] (Lab) [address], [place], [address], 12/26/2020 05:50:14 12/26/1912/25/2020 CBC w/ auto diff RBC 4.60 10'6/ uL (based on docume nted legal sex) 4.10-[address] [facility] (Lab) [address], [place], [address], 12/26/2020 05:50:14 12/26/19 21 12/25/2020 CBC w/ auto diff HGB 13.2 g/dL (based on docume nted legal sex) 11.9-[address] [facility] (Lab) [address], [place], [address], 12/26/2020 05:50:14 12/26/1912/25/2020 CBC w/ auto diff HCT 41.8 % (based on docume nted legal sex) 37.4-[address] [facility] (Lab) [address], [place], [address], 12/26/2020 05:50:14 12/26/19 21 12/25/2020 CBC w/ auto diff MCV 92.0 fL 82.0-[address] [facility] (Lab) [address], [place], [address], 12/26/2020 05:50:14 12/26/19 21 12/25/2020 CBC w/ auto diff MCH 29.0 pg 27.0-[address] [facility] (Lab) [address], [place], [address], 12/26/2020 05:50:14 12/26/19 21 12/25/2020 CBC w/ auto diff MCHC 32.0 g/dL 32.0-[address] [facility] (Lab) [address], [place], [address], 12/26/2020 05:50:14 12/26/19 21 12/25/2020 CBC w/ auto diff RDW 13.0 % 11.0-[address] [facility] (Lab) [address], [place], [address], 12/26/2020 05:50:14 12/26/19 21 12/25/2020 CBC w/ auto diff plt 277 10'3/ uL 150-[address] [facility] (Lab) [address], [place], [address], 12/26/2020 05:50:14 12/26/19 21 12/25/2020 CBC w/ auto diff MPV 11.[address] [facility] (Lab) [address], [place], [address], 12/26/2020 05:50:14 12/26/19 21 12/25/2020 CBC w/ auto diff NRBC's 0.00 % [address] [facility] (Lab) [address] [place], [address], 12/26/2020 05:50:14 12/26/19 21 12/25/2020 CBC w/ auto diff absolute NRBCs 0.0 10'3/ uL [address] [facility] (Lab) [address] [place], [address], 12/26/2020 05:50:14 12/26/19 21 12/25/2020 CBC w/ auto diff neutrophils 48.0 % 37.0-[address] [facility] (Lab) [address] [facility], [place], [address], 12/26/2020 05:50:14 12/26/19 21 12/25/2020 CBC w/ auto diff lymphocytes 30.0 % 16.0-[address] [facility] (Lab) [address] [facility], [place], [address], 12/26/2020 05:50:14 12/26/19 21 12/25/2020 CBC w/ auto diff monocytes 11.0 % 4.0-[address] [facility] (Lab) [address] [place], [address], 12/26/2020 05:50:14 12/26/19 21 12/25/2020 CBC w/ auto diff eosinophils 9.0 % 0.0-9. [address] [facility] (Lab) [address] [place], [address], 12/26/2020 05:50:14 12/26/19 21 12/25/2020 CBC w/ auto diff basophils 2.0 % 0.0-2. [address] [facility] (Lab) [address] [place], [address], 12/26/2020 05:50:14 12/26/19 21 12/25/2020 CBC w/ auto diff immature granulocytes 0.0 % no define d refere nce range Not Available [facility] (Lab) [address] [place], [address], 12/26/2020 05:50:14 12/26/19 21 12/25/2020 CBC w/ auto diff absolute neutrophils 2.9 10'3/ uL 1.1-6. [address] [facility] (Lab) [address] [facility] [place], [address], 12/26/2020 05:50:14 12/26/19 21 12/25/2020 CBC w/ auto diff absolute lymphocytes 1.8 10'3/ uL 0.7-3. [address] [facility] (Lab) [address] [facility], [place], [address], 12/26/2020 05:50:14 12/26/19 21 12/25/2020 CBC w/ auto diff absolute monocytes 0.7 10'3/ uL 0.3-1. [address] [facility] (Lab) [address] [facility], [place], [address], 12/26/2020 05:50:14 12/26/19 21 12/25/2020 CBC w/ auto diff absolute eosinophils 0.6 10'3/ uL 0.0-0. [address] [facility] (Lab) [address] [facility], [place], [address], 12/26/2020 05:50:14 12/26/19 21 12/25/2020 CBC w/ auto diff absolute basophils 0.1 10'3/ uL 0.0-0. [address] [facility] (Lab) [address] [facility], [place], [address], 12/26/2020 05:50:14 12/26/19 21 12/25/2020 CBC w/ auto diff absolute immature granulocytes 0.00 10'3/ uL 0.00-0 .10 021 1:21 AM: P indic ates parti al resul ts on a panel have been relea sed. Addit ional resul ts will follo w. 021 1:21 AM: This resul t has been final verif ied. No addit ional or iqbal ed resul ts are expec shaquille. Not Available [facility] (Lab) [address] [place], [address], 12/26/2020 05:50:14 12/26/1912/25/2020 TSH, serum or plasm a TSH 0.02 uIU/m L 0.30-5 [address] [facility] (Lab) [address] [place], [address], 12/26/2020 05:50:14 12/26/19 21 12/25/2020 phosp horus , serum or plasm a phosphorus 3.9 mg/dL 2.5-5. [address] [facility] (Lab) [address] [place], [address], 12/26/2020 05:50:15 12/26/19 21 12/25/2020 CMP, serum or plasm a sodium 140 mmol/ L 136-[address] [facility] (Lab) [address] [place], [address], 12/26/2020 05:50:15 12/26/19 21 12/25/2020 CMP, serum or plasm a potassium 4.5 mmol/ L 3.5-5. [address] [facility] (Lab) [address] [place], [address], 12/26/2020 05:50:15 12/26/1912/25/2020 CMP, serum or plasm a chloride 104 mmol/ L 98-[address] [facility] (Lab) [address] [place], [address], 12/26/2020 05:50:15 12/26/1912/25/2020 CMP, serum or plasm a carbon dioxide 28 mmol/ L 21-[address] [facility] (Lab) [address] [place], [address], 12/26/2020 05:50:15 12/26/1912/25/2020 CMP, serum or plasm a anion gap 8 mmol/ L 4-[address] [facility] (Lab) [address] [place], [address], 12/26/2020 05:50:15 12/26/19 21 12/25/2020 CMP, serum or plasm a blood urea nitrogen 12 mg/dL 7-25 Not Available [facility] (Lab) [address] , [place], [address], 12/26/2020 05:50:15 12/26/19 21 12/25/2020 CMP, serum or plasm a creatinine 0.71 mg/dL 0.60-[address] [facility] (Lab) [address], [place], [address], 12/26/2020 05:50:15 12/26/19 21 12/25/2020 CMP, serum or plasm a GFR () 100 mL/mi n/1.7 3_m2 60-[address] [facility] (Lab) [address] [facility], [place], [address], 12/26/2020 05:50:15 12/26/19 21 12/25/2020 CMP, serum or plasm a GFR (others) 83 mL/mi n/1.7 3_m2 60-[address] [facility] (Lab) [address], [place], [address], 12/26/2020 05:50:15 12/26/19 21 12/25/2020 CMP, serum or plasm a calcium 9.5 mg/dL 8.6-[address] [facility] (Lab) [address] [place], [address], 12/26/2020 05:50:15 12/26/1912/25/2020 CMP, serum or plasm a glucose 86 mg/dL 70-[address] [facility] (Lab) [address] [place], [address], 12/26/2020 05:50:15 12/26/19 21 12/25/2020 CMP, serum or plasm a protein, total 6.9 g/dL 6.4-8. [address] [facility] (Lab) [address] [place], [address], 12/26/2020 05:50:15 12/26/19 21 12/25/2020 CMP, serum or plasm a albumin 4.1 g/dL 3.5-5. [address] [facility] (Lab) [address] [place], [address], 12/26/2020 05:50:15 12/26/19 21 12/25/2020 CMP, serum or plasm a ALT 16 units /L 9-[address] [facility] (Lab) [address] [place], [address], 12/26/2020 05:50:15 12/26/1912/25/2020 CMP, serum or plasm a alkaline phosphatase 81 units /L 34-[address] [facility] (Lab) [address] [place], [address], 12/26/2020 05:50:15 12/26/19 21 12/25/2020 CMP, serum or plasm a AST 17 units /L 13-[address] [facility] (Lab) [address] [place], [address], 12/26/2020 05:50:15 12/26/1912/25/2020 CMP, serum or plasm a bilirubin, total 0.5 mg/dL 0.2-1. [address] [facility] (Lab) [address] [place], [address], 12/26/2020 05:50:15 12/26/1912/25/2020 vitam in D, 25-hy droxy , total , serum vitamin D, 25-hydroxy, total 56.6 NG/mL 30-80 NOTE: Defic iency : <20 ng/mL Insuf ficie ncy: 20-29 ng/mL Optim um Level : 30-80 ng/mL Possi ble Toxic ity: >80 ng/mL Most patie nts with toxic ity have level s >150 ng/mL . Not Available [facility] (Lab) [address], [place], [address], 12/26/2020 05:50:15 12/26/19 21 12/25/2020 T4, free, serum T4, free 1.61 NG/dL 0.60-1 .[address] [facility] (Lab) [address] [facility], [place], [address], 12/26/2020 06:39:27 12/01/19 21 11/29/2020 MAMMO , scree chava, bilat eral No observ ation record ed. [facility] [address], [place], [address], 12/06/2020 12:44:51 12/14/19 21 DEXA, axial skele ton + verte bral fract ure asses sment No observ ation record ed. [facility] [address], [place], [address], 12/20/2020 11:17:42 12/14/19 21 DEXA, axial skele ton + verte bral fract ure asses sment No observ ation record ed. [facility] [address], [place], [address], 12/19/2020 10:45:08 03/05/20 22 03/05/2022 MAMMO , scree chava, bilat eral No observ ation record ed. [place] [facility] [address], [place], [address], 03/13/2022 18:00:25 05/11/20 23 05/11/2023 MAMMO , scree chava, bilat eral No observ ation record ed. [facility] [place] [facility] [address], [place], [address], 05/13/2023 17:14:54 02/20/20 25 09/08/2024 imagi ng/di agnos tic resul t No observ ation record ed. [email or web address] [place] [facility] [address], [place], [address], 09/20/2024 10:52:21 09/09/19 25 09/08/2024 imagi ng/di agnos tic resul t No observ ation record ed. [email or web address] [place] [facility] [address], [place], [address], 09/20/2024 10:52:21 Result Notes None recorded. Problems Name Problem SNOMED Code Status Onset Date Resolution Date Notes Provider Name and Address Organization Details Recorded Time Speciali zed medical examinat ion Completed 201112/25/2021 Routine gynecolog ical examinati on;Practi ce ID: [id number] Loni coker [facility] 2 09:35:54 Screenin g for malignan t neoplasm of cervix Completed 201112/25/2021 Pap Smear;Pra ctice ID: [id number] Loni Meyers [facility] 2 09:35:54 Screenin g for malignan t neoplasm of rectum Completed 201112/25/2021 Screening for malignant neoplasms of the rectum;Pr actice ID: [id number] Loni coker [facility] 2 09:35:54 Leukocyt osis [id number] Completed 201212/25/2021 LEUKOCYTO SIS NOS;Pract ice ID: [id number] Loni coker [facility] 2 09:35:54 Adult health examinat ion Completed 201312/25/2021 Routine general medical examinati on at a health care facility; Practice ID: [id number] Loni coker [facility] 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 [address] 09:35:[address] Concept Completed 201712/25/2021 Encntr for general adult medical exam w/o abnormal findings; Recorded Elsewhere : No Locati on: [facility] So urce: EHR Chron ic: N Practic e ID: [id number] Bill able Time: 10:30:00 AM Loni Meyers [facility] 2 09:35:54 Cervicov aginal cytology specimen unsatis actor [id number] Completed 201712/25/2021 Unsatisfa ctory cytologic smear of cervix;Re corded Elsewhere : No Locati on: [facility] So urce: EHR Chron ic: N Practic e ID: [id number] Bill able Time: 10:30:00 AM Loni Meyers [facility] 2 09:35:54 Problem Notes None recorded. Procedures Surgical History Date Name Laterality Status Provider Name and Address Organization Details Recorded Time 1 Most Recent Bone Density completed [facility] 12/25/2021 10:11:35 1 Date of Last Mammogram completed [facility] 12/25/2021 10:11:15 0 Date of Last Pap Smear completed [facility] 10/10/2020 14:29:04 ligation of bilateral fallopian tubes completed Sejal Pan [facility] 10/10/2020 14:32:13 procedure on back completed Sejal Pan [facility] 10/10/2020 14:32:19 LEEP completed Sejal Pan [facility] 10/10/2020 14:32:24 Colonoscopy completed Sejal Crump [facility] 10/10/2020 14:32:29 Imaging Results Imaging Date Name Status LastModified by Organiz ation Details LastModified Time 11/29/2020 MAMMO, screening, bilateral completed [facility] [address], [place], [address], 12/06/2020 12:44:51 12/13/2020 DEXA, axial skeleton + vertebral fracture assessment completed [facility] [address], [place], [address], 12/20/2020 11:17:42 12/13/2020 DEXA, axial skeleton + vertebral fracture assessment completed [facility] [address], [place], [address], 12/19/2020 10:45:08 03/05/2022 MAMMO, screening, bilateral completed [email or web address] [place] [facility] [address], [place], [address], 03/13/2022 18:00:25 05/11/2023 MAMMO, screening, bilateral active [facility] [place] [facility] [address], [place], [address], 05/13/2023 17:14:54 09/08/2024 imaging/diagnos tic result active [email or web address] [place] [address] Imaging [address], [place], [address], 09/20/2024 10:52:21 09/08/2024 [facility]os [facility]ic [email or web address] [place] [facility] [address], [place], [address], 09/20/2024 10:52:21 Procedure Notes None recorded. Medical Equipment None Reported. Allergies Allergen ID Allergen Name Allergen Category Reaction Reaction Severity Criticality Documentation Date Start Date Code Code System Note Provider Name and Address Organization Details Recorded Time 39992 Product containin g penicilli n (product) medicatio n Not available Not available Not available 07/06/2020 [id number] SNOMED React ion: Unkno wn; Comme nt: [facility]; [facility] 0 14:20:27 Medications Name Sig Start Date Stop Date Status Note LastModified by Organization Details LastModified Time levothyro xine 137 mcg tablet TAKE 1 TABLET BY MOUTH DAILY 06/09 completed Not Available Not Available Not Available trazodone 50 mg tablet TAKE 1 TO 2 TABLETS AT BEDTIME FOR SLEEP active Not Available Not Available No t Available Synthroid 25 mcg tablet take 1 tablet by oral route every day 12/25 completed Prescrib ed Elsewher e: Yes Loca tion: Delaney cohen [facility] odify By: kwaku dyer DateTime : 02/25/20 11 12:08:48 PM Not Available Not Available Not Available levothyro xine 125 mcg tablet TAKE 1 TABLET BY MOUTH DAILY active Not Available Not Available No t Available Estrace 0.01% (0.1 mg/gram) vaginal cream insert (1G) by vaginal route every week 07/21 completed Prescrib ed Elsewher e: No Locat ion: Delaney cohen [facility] odify By: [email or web address] Encount er DateTime : 05/22/20 16 09:30:00 AM Not Available Not Available Not Available Vitamins and Minerals tablet active Prescrib ed Elsewher e: Yes Loca tion: Franklyn vicki [facility] odify By: dorothy rosenthal DateTime : 03/17/20 11 03:30:00 PM Not Available Not Available Not Available azithromy antwon 500 mg tablet TAKE TWO TABLETS BY MOUTH 1 HOUR PRIOR TO APPOINTM ENT AND ONE TABLET 6 HOURS LATER. 06/09 completed Not Available Not Available Not Available rosuvasta tin 10 mg tablet TAKE 1 TABLET DAILY active Not Available Not Available No t Available Crestor 5 mg tablet take 2 tablet by oral route every day 07/21 completed Prescrib ed Elsewher e: Yes Loca tion: Delaney cohen [facility] odify By: Encount er DateTime : 03/17/20 12 03:30:00 PM Not Available Not Available Not Available Calcio Mirian 500 mg tablet active Prescrib ed Elsewher e: Yes [facility]oca [facility] odify By: [email or web address] Encounte r DateTime : 02/25/20 11 12:08:48 PM Not Available Not Available Not Available trazodone 12/25 completed Not Available Not Available Not Available Vitamin D3 10 mcg (400 unit) capsule active Prescrib ed Elsewher e: Yes Loca tion: Franklyn vicki [facility] odify By: [email or web address] Encounte r DateTime : 02/25/20 11 12:08:48 PM Not Available Not Available Not Available Xyzal 5 mg tablet take 1 tablet by oral route every day in the evening active Prescrib ed Elsewher e: Yes Loca tion: [facility] odify By: [email or web address] Encount er DateTime : 07/21/19 09:00:00 AM Not Available Not Available Not Available WelChol 3.75 gram oral powder packet take 1 packet by oral route every day dissolve d in 120 to 240ml of water; stir and drink with a meal 03/17 completed Prescrib ed Elsewher e: Yes Loca tion: [facility] odify By: brodie schuler DateTime : 03/17/20 11 03:30:00 PM Not Available Not Available Not Available Contrave 8 mg-90 mg tablet,ex tended release active Not Available Not Available Not Available Vitals Date Recorded Body height Body mass index (BMI) Body weight Systolic blood pressure Diastolic blood pressure Provider Name and Address Organization Details Last Updated DateTime 10/11/2020 170.18 cm 25.7 kg/m2 58311.15 g 127 mm[Hg] 74 mm[Hg] Sejal Pan [facility] 09:30:48 Date Recorded Body height Body mass index (BMI) Body weight Provider Name and Address Organization Details Last Updated DateTime 12/25/2021 166.37 cm 24.5 kg/m2 46161.14 g Loni Meyers [facility] 12/25/2021 10:09:47 Date Recorded Systolic blood pressure Diastolic blood pressure Provider Name and Address Organization Details Last Updated DateTime 12/25/2021 124 mm[Hg] 74 mm[Hg] Laly Gavin, [facility]- [address], [place], [address], [facility] 12/25/2021 10:31:05 Date Recorded Body height Body mass index (BMI) Body weight Systolic blood pressure Diastolic blood pressure Provider Name and Address Organization Details Last Updated DateTime 06/09/2024 166.37 cm 28 kg/m2 06454.3 g 144 mm[Hg] 69 mm[Hg] Makayla Etienne [facility] 10:06:29 Social History Question Answer Notes LastModified by Organizat ion Details LastModified Time Tobacco Smoking Status Never Smoker Loni Meyers sheela, [facility] 12/25/2021 10:12:10 What Is Your Level Of Alcohol Consumption? Occasional Information not available 12/25/2021 Are You Blind Or Do You Have Difficulty Seeing? No Information n ot available 12/25/2021 What Is Your Level Of Caffeine Consumption? Occasional Information not available 12/25/2021 In The 14 Days Before Symptom Onset, Have You Had Close Contact With A Laboratory-confirm ed COVID-19 While That Case Was Ill? No [email or web address] Information n ot available 06/09/2024 In The 14 Days Before Symptom Onset, Have You Had Close Contact With A Person Who Is Under Investigation For COVID-19 While That Person Was Ill? No [email or web address] Information not available 06/09/2024 Have You Been To An Area Known To Be High Risk For COVID-19? No [email or web address] Information not available 06/09/2024 Are You Deaf Or Do You Have Serious Difficulty Hearing? No Information not available 12/25/2021 What Type Of Diet Are You Following? REGULAR Information n ot available 12/25/2021 Do You Use Your Seat Belt Or Car Seat Routinely? Yes Information not available 12/25/2021 Do You Have Smoke And Carbon Monoxide Detectors In Your Home? Yes Information not available 12/25/2021 Do You Feel Stressed (tense, Restless, Nervous, Or Anxious, Or Unable To Sleep At Night)? [id number] Information not available 12/25/2021 Do You Use Any Illicit Or Recreational Drugs? No Information not available 12/25/2021 Do You Use Sunscreen Routinely? Yes Information not available 12/25/2021 Sex: Unknown Functional Status Question Answer Note LastModified by Organizat ion Details LastModified Time Do you have difficulty walking or climbing stairs? No Information not available 12/25/2021 Are you able to walk? [email or web address] Information not available 12/25/2021 Are you able to care for yourself? Yes Information not available 12/25/2021 Do you have difficulty dressing or bathing? No Information not available 12/25/2021 What is your exercise level? Occasional Information not available 12/25/2021 Mental Status None recorded. Family History Relationship Description Onset Age of this Age Resolved Age Notes LastModified by Organization Details LastModified Time Father Hypertensive disorder [email or web address] Not available 2020 14:31:52 Medical History Condition Response History of abnormal pap Y Thyroid Problems Y High Cholesterol Y Gynecological History Statement/Question Response Abnormal Pap N Date of Last Mammogram 11/29/2020 STIs/STDs N Current Control Method Menopause Most Recent Bone Density 12/13/2020 Sexually Active? Y Age of first menstrual cycle 13 Date of Last Pap Smear 07/21/2019 Sexual Problems? N Desired Control Method None LMP Unknown Obstetrics History GPAL:G 2 P 2 0 0 2 Type Value Full Term 2 Living 2 Total 2 Past Encounters Encounter ID Performer Location Encounter Start Date Encounter Closed Date Diagnosis/Indication Diagnosis SNOMED-CT Code Diagnosis ICD10 Code Diagnosis Note [id number] [facility] [address] [address] 10/11/2020 09:19:51 10/11/2020 10:17:18 Gynecologic examination [id number] Z01.419 Take Calcium with Vitamin D 12-1500mg daily. Do monthly self breast exams. It is advised to get annual flu shot in the fall and she could obtain at [facility] or [facility]. If you haven't received the Tdap vaccine in the last 10 years you should obtain one as well. Have mammogram yearly, bone density every 2-3 years and colonoscop y every 5-10 years depending on findings and history. Engage in daily exercise of low impact aerobic exercise 45-60 minutes 4-5 times weekly. Avoid tobacco and illicit drugs as well as using moderation with alcohol intake less than 1-2 8 oz beverages daily. This lifestyle behavior pattern will lead to less health conditions and longer life span. If BMI greater than 25 weight watchers or dietary consult advised. Questions have been answered. Patient appears to understand instructio ns, but if you have any further questions call or respond to this email Monogamous Hx of Leep 2002 We decided today we would do pap/hpv q2-3yrs and at some point re-evaluat e the need. Postmenopa usal osteopenia [id number] Z78.0 [id number] Laly Gavin , [facility] [address] [address] 12/25/2021 09:43:32 12/25/2021 11:23:25 Gynecologic examination [id number] Z01.419 Take Calcium with Vitamin D 12-1500mg daily. Do monthly self breast exams. It is advised to get annual flu shot in the fall and she could obtain at [facility]. If you haven't received the Tdap vaccine in the last 10 years you should obtain one as well. Have mammogram yearly, bone density every 2-3 years and colonoscop y every 5-10 years depending on findings and history. Engage in daily exercise of low impact aerobic exercise 45-60 minutes 4-5 times weekly. Avoid tobacco and illicit drugs as well as using moderation with alcohol intake less than 1-2 8 oz beverages daily. This lifestyle behavior pattern will lead to less health conditions and longer life span. If BMI greater than 25 weight watchers or dietary consult advised. Questions have been answered. Patient appears to understand instructio ns, but if you have any further questions call or respond to this email Pap/hpvUSP ST recommends against screening for cervical cancer in women older than 65yo, those who've had a hysterecto my for non-cancer indication s, & who have had adequate prior screening & are not otherwise at high risk for cervical cancer. STD Screen declined Genetic Screen discussed Colon Screen UTD PCP Dexa Screen UTD PCP Routine Labs UTD PCPMammo ordered [id number] ARUNA Hussein [place] [address] [address] 06/09/2024 09:56:48 06/09/2024 10:36:24 Gynecologic examination [id number] Z01.419 WWEpap sentdeclin ed STI screenmamm ogram order givencolon oscopy UTDdexa order givenrouti ne labs UTD/PCPBP precaution s reviewed, encouraged PCP f/u Do monthly self breast exams.It is advised to get annual flu shot in the fall and she could obtain at local pharmacy. If you haven't received the Tdap vaccine in the last 10 years you should obtain one as well.Have mammogram yearly, bone density every 2-3 years and stay up to date on colon cancer screening. Engage in regular exercise. Avoid tobacco and illicit drugs. This lifestyle behavior pattern will lead to less health conditions and longer life span. If BMI greater than 25 dietary consult advised.Qu estions have been answered. Screening for malignant neoplasm of breast [id number] Z12.39 Screening for osteoporosis [id number] Z13.820 Health Concerns Section Related Observation LastModified by Organization Detai ls LastModified Time None Recorded Concern Status LastModified by Organization Details LastModified Time None Recorded Advance Directives Directive None Recorded Payers Encounter Date Sequence Insurance Name Policy Number Policy Batres Covered Member ID Batres Member ID Guarantor Name 10/11/2020 1 [place] Annemarie S Elena [id number] Annemarie S Elena 10/11/2020 2 [place] [id number] Benedicto Ramosgis [id number] Annemarie S Elena 12/25/2021 1 [place] Annemarie S Elena [id number] Annemarie S Elena 12/25/2021 2 [place] [id number] Benedictojessica Ramosgis [id number] Annemarie S Elena 06/09/2024 1 [employer] (MEDICARE REPLACEMENT PPO) [id number] Annemarie Parker [id number] Annemarie Parker Notes Date Note Type Note Provider Name and Address Organization Details Recorded Time 10/11/2020 text/html Annual Inpatient Auditor Post-MenopausalRe ported bypatient.Menopau bob Symptoms:no menopausal symptoms; normal vaginal lubrication Vaginal Bleeding:history of menopause having occurred; no history of post menopausal bleeding Urinary Symptoms:no hematuria; no incontinence; no nocturia; no urinary frequency Vulva:no genital lesion; no vulvar atrophy Vagina:normal vaginal discharge; no vaginal atrophy Breast:no breast lump; no nipple discharge; no breast pain Sexual Complaints:no sexual complaints Psychological Symptoms:no depression; no anxiety Preventive Measures:encourag e regular mammograms starting age 40; encourage self breast examination; encourage regular exercise; encourage no tobacco use; needs to schedule mammogram; history of recent colonoscopy; needs to schedule bone density [facility] [address], [place], [address], [facility] 10/11/2020 10:01:43 12/25/2021 text/html Annual Inpatient Auditor Post-MenopausalRe ported bypatient.Menopau bob Symptoms:no menopausal symptoms; normal vaginal lubrication Vaginal Bleeding:history of menopause having occurred; no history of post menopausal bleeding Urinary Symptoms:no hematuria; no incontinence; no nocturia; no urinary frequency Vulva:no genital lesion; no vulvar atrophy Vagina:normal vaginal discharge; no vaginal atrophy Breast:no breast lump; no nipple discharge; no breast pain Sexual Complaints:no sexual complaints Psychological Symptoms:no depression; no anxiety Preventive Measures:encourag e regular mammograms starting age 40; encourage self breast examination; encourage regular exercise; encourage no tobacco use; needs to schedule mammogram; history of recent colonoscopy WAN Jaimes [address], [place], [address], [facility] 12/25/2021 10:33:14 06/09/2024 text/html Annual Inpatient Auditor Post-MenopausalRe ported bypatient.Menopau bob Symptoms:no menopausal symptoms; normal vaginal lubrication Vaginal Bleeding:history of menopause having occurred; no history of post menopausal bleeding Urinary Symptoms:no hematuria; no incontinence; no nocturia; no urinary frequency Vulva:no genital lesion; no vulvar atrophy Vagina:normal vaginal discharge; no vaginal atrophy Breast:no breast lump; no nipple discharge; no breast pain Sexual Complaints:no sexual complaints Psychological Symptoms:no depression; no anxiety Preventive Measures:encourag e regular mammograms starting age 40; encourage self breast examination; encourage regular exercise; encourage no tobacco use; needs to schedule mammogram; history of recent colonoscopy; needs to schedule bone densityNotes:wwep ostmenopausal since late 40sdexa last 2020mammogram last olonoscopy UTD h/o LEEP in 2002 last pap 07/2019 : - normal Florence Nuñez, WHFIDELIA [address], [place], [address], [facility] 06/09/2024 10:35:07 OBGyn Episode Ob Episode Information Episode Created Date Number of Fetuses Patient Bloodtype Patient rh Status Prepregnancy Weight lbs Domestic Partner Domestic Partner Phone Father Name Grinding Wheel Dresser Status 10/11/19 21 1 CLOSED Fetus Data First Name Last Name Admitted to NICU Weight (g) Sex Living Outcome Pediatric Complications Fetus ID Race Codes Race Delivery Type M Full Term [id number] Vaginal Delivery Pj Calculation Initial Pj Date Initial Exam Date Initial Exam Provider Initial Ultrasound Date Last Menstrual Period Date Ultra Sound Weeks Gestation 0 Eighteen To Twenty Week Pj Update Ultra Sound Date Fundal Height At Umbil Quickening Date Ultra Sound Latest Weeks Gestation Final Pj Confirmed By Final Pj Confirmed Date Final Pj Date Ultra Sound Latest Days Gestation 0 0 Menstrual History Last Menstrual Date Menses Monthly On Bcp Conception Prior Menses Frequency Hcg Plus Date Menarche Onset Age Delivery Information Delivery Date Delivery Type Labor Anesthesia Weeks Gestation Incision Type Labor Labor Length Hrs Delivered By Post Complications Tubal Sterilization Discharge Date Comments 5 Discharge Information Feeding Method Contraceptive Method Maternal HG B and HCT Levels Ob Episode Information Episode Created Date Number of Fetuses Patient Bloodtype Patient rh Status Prepregnancy Weight lbs Domestic Partner Domestic Partner Phone Father Name Grinding Wheel Dresser Status 10/11/19 21 1 CLOSED Fetus Data First Name Last Name Admitted to NICU Weight (g) Sex Living Outcome Pediatric Complications Fetus ID Race Codes Race Delivery Type F Full Term 8609 Vaginal Delivery Pj Calculation Initial Pj Date Initial Exam Date Initial Exam Provider Initial Ultrasound Date Last Menstrual Period Date Ultra Sound Weeks Gestation 0 Eighteen To Twenty Week Pj Update Ultra Sound Date Fundal Height At Umbil Quickening Date Ultra Sound Latest Weeks Gestation Final Pj Confirmed By Final Pj Confirmed Date Final Pj Date Ultra Sound Latest Days Gestation 0 0 Menstrual History Last Menstrual Date Menses Monthly On Bcp Conception Prior Menses Frequency Hcg Plus Date Menarche Onset Age Delivery Information Delivery Date Delivery Type Labor Anesthesia Weeks Gestation Incision Type Labor Labor Length Hrs Delivered By Post Complications Tubal Sterilization Discharge Date Comments 2 Discharge Information Feeding Method Contraceptive Method Maternal HG B and HCT Levels
--- OUTSIDE RECORDS SUMMARY | 2024-09-21 08:24 | XMS_ITS | Patient Health Summary ---
Author Organization [facility] Address [address] [place] [address] Care Team Providers Care Washroom Attendant Name Role Phone Pito Malave MD Primary Care Provider [phone] Note from [facility],non-owned Affiliates and Associated Physician Practices is amultiple site organization consisting of ambulatory clinics and hospital sitesin [place], [place], [place] and [place]. This disclosure is being madepursuant to the Care Everywhere program and may not contain all information available regarding this patient. Last updated 18.[facility] Allergies * Penicillins(Rash) -Medium Criticality Active Problems Problem Noted Date Diagnosed Date [...] Mass Index 27.67 11/20/2015 7:15 AM CDT Procedures * DERMATOPATHOLOGY(Performed 08/13/2021) * DERMATOPATHOLOGY(Performed 04/08/2018) * DERMATOPATHOLOGY(Performed 08/23/2015) * DERMATOPATHOLOGY(Performed 08/23/2015) * DERMATOPATHOLOGY(Performed 08/09/2015) * CULTURE URINE(Performed 04/24/2014) Results * DERMATOPATHOLOGY (08/13/2021 12:00 AM DRONE SOFTWARE DEVELOPMENT ENGINEER) Only the most recent of5 resultswithin the time period is included. Case Report Dermatopathology Report Case: [id number] Authorizing Provider: Jr Charles MD Collected: 08/13/2021 12:00 AM Ordering Location: [facility] DermPath Lab Received: 08/14/2021 02:07 PM Pathologist: Theron Brush MD Specimen: Skin, right preauricular skin 4:54 PM [facility] DERMATOPATHOLOGY LABORATORY Final Diagnosis Specimen A. 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 The specimen consists of a shave biopsy measuring [id number] mm. Jar 0. 2 4:54 PM [facility] DERMATOPATHOLOGY LABORATORY Microscopic Description Specimen A. SKIN, right preauricular skin: There is hyperkeratosis alternating with parakeratosis. There is epidermal hyperplasia with disorderly maturation of keratinocytes with nuclear pleomorphism confined to the lower half of the epidermis. There is acanthosis consisting of fairly uniform squamous cells with eosinophilic cytoplasm and squamous eddies. 2 4:54 PM [facility] DERMATOPATHOLOGY LABORATORY Disclaimer An external and internal positive and negative controls are appropriate for the histochemical, immunohistochemical and immunofluorescence stain(s) in this case (if any), except where stated explicitly. The performance characteristics of the stain(s) cited in this report were developed and its performance characteristic determined by the Dermatopathology Laboratory at [facility], directed by Dr. Emerald Brush. These tests need not be, and therefore are not, approved by the [place] Food and Drug Administration. The tests are used for clinical purposes. Billing Codes Specimen Charges Stain Charges 36322 1 2 4:54 PM DRONE SOFTWARE DEVELOPMENT ENGINEER DERMATOPATHOLOGY LABORATORY Embedded Images 2 4:54 PM DRONE SOFTWARE DEVELOPMENT ENGINEER DERMATOPATHOLOGY LABORATORY Pathology/Cytolog y TISSUE SPECIMEN FROM SKIN / Unknown 08/13/2021 08/14/2021 2:07 PM DRONE SOFTWARE DEVELOPMENT ENGINEER Jr Charles MD LAB - PATHOLOGY/CYTO LOGY ORDERABLES DERMATOPATHOLOGY LABORATORY [facility] Department of Dermatology [address] [phone] * CULTURE URINE (04/24/2014 9:20 AM CDT) Culture Urine Less than 10,000 CFU/ML of Normal Urogenital/ Skin [facility] Comment:. Culture Urine Less than 10,000 CFU/ML of Normal Fecal [facility] Comment:. Urine specimen (specimen) (Unspecified) 04/24/2014 9:20 AM CDT 04/24/2014 5:[address] [facility] - 04/26/2014 11:38 AM CDT YonSpecimen#[id number] Yon Loc/Rm/Bed: LAB// UNSP U @04/24/14 1023: URINE CULTURE added. RFLXG = UAUCC. Historical Provider LAB - MICROBIOLOG Y ORDERABLES [address] [phone] Care Teams Washroom Attendant Relationship Specialty Start Date End Date Pito Malave MD [address] [place] [address] PCP - General 05/01/08
--- OUTSIDE RECORDS SUMMARY | 2024-09-21 08:24 | XMS_ITS | Clinical Summary ---
Author Organization [facility] Address [address] [place] [address] Care Team Providers Care Steam Plant Records Clerk Name Role Phone Pito Malave MD Primary Care Provider Source Comments [facility],non-[facility] Affiliates and Associated Physician Practices is amultiple site organization consisting of ambulatory clinics and hospital sitesin [place], [place], [place] and [place]. This disclosure is being madepursuant to the Care Everywhere program and may not contain all information available regarding this patient. Last updated 18.[facility] Allergies Active Allergy Reactions Criticality Noted Date Comments Penicillins Rash Medium 09/18/2015 Active Problems Problem Noted Date Diagnosed Date Basal cell carcinoma of skin of scalp and neck 0 11/20/2015 Family History Medical History Relation Name Comments Cancer Father skin Hypertension Father Relation Name Status Comments Father Social History Tobacco Use Types Packs/Day Years [...] 11/20/2015 7:15 AM CDT Plan of Treatment Health Maintenance Due Date Last Done Comments BONE DENSITY TESTING 1955 COLOGUARD (AGES 45-75) - COL ON CA SCREENING 1955 COLON MONITORING 1955 COLONOSCOPY - COLON CA SCREENING 1955 CT COLONOGRAPHY - COLON CA SCREENING 1955 Colorectal Cancer Screening 1955 FIT - COLON CA SCREENING 1955 FLEX SIG - COLON CA SCREENING 1955 LIPID TESTING 1955 MAMMOGRAM 1955 MEDICARE AWV 12 MONTHS 1955 HEPATITIS C SCREENING 06/09/1973 DTAP/TDAP/TD VACCINES (1 - Tdap) 1974 PNEUMOCOCCAL VACCINE 50+ (1 of 1 - PCV) 2005 ZOSTER VACCINE (1 of 2) 2005 COVID-19 VACCINE (1 - 2023-2 5 season) 2024 INFLUENZA VACCINE (#1) 2024 DEPRESSION SCREENING 07/20/2024 Respiratory Syncytial Virus (RSV) Vaccine Pt: or over 60 yrs (1 - 1-dose 75+ series) 2030 HEPATITIS B VACCINE Aged Out No longe r eligible based on patient's age to complete this topic HIB VACCINE Aged Out No longer eligi ble based on patient's age to complete this topic HPV VACCINE Aged Out No longer eligi ble based on patient's age to complete this topic MENINGOCOCCAL (Group B) VACCINE Aged Out No longer eligible based on patient's age to complete this topic MENINGOCOCCAL VACCINE Aged Out No angelito thanh eligible based on patient's age to complete this topic Care Teams Steam Plant Records Clerk Relationship Specialty Start Date End Date Pito Malave MD [address] [place] [address] PCP - General 05/01/08
--- OUTSIDE RECORDS SUMMARY | 2024-09-21 08:24 | XMS_ITS | Clinical Summary ---
Author Organization [facility] Address [address] 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
--- OUTSIDE RECORDS SUMMARY | 2024-09-21 08:24 | XMS_ITS | Encounter Summary ---
Author Organization [facility] Address [address] [place] [address] Care Team Providers Care Manager Delivery Name Role Phone Pito Malave MD Primary Care Provider [phone] Encounter Details Date Type Department Care Team (Late st Contact Info) Description 08/14/2021 Lab Requisition [facility] DermPath Lab [address] [place] [phone] Jr Charles MD [address] [place] [address] Social History Tobacco Use Types Packs/Day Years Used Date Smoking Tobacco: Former Alcohol Use Standard Drinks/Week Comments Yes 0 (1 standard drink = 0.6 oz pur e alcohol) Sex and Gender Information Value Date Recorded Sex Assigned at Not on file Gender Identity Not on file Sexual Orientation Not on file documented as of this encounter Plan of Treatment Not on file documented as of this encounter Procedures Procedure Name Priority Date/Time Associated Diagnosis Comments DERMATOPATHOLOGY Routine 08/13/2021 12:0 0 AM ICE CREAM FREEZER ASSISTANT documented in this encounter Results * DERMATOPATHOLOGY (08/13/2021 12:00 AM ICE CREAM FREEZER ASSISTANT) Case Report Dermatopathology Report Case: [id number] Authorizing Provider: Jr Charles MD Collected: 08/13/2021 12:00 AM Ordering Location: [facility] DermPath Lab Received: 08/14/2021 02:07 PM Pathologist: Theron Brush MD Specimen: Skin, right preauricular skin 2 4:54 PM [facility] DERMATOPATHOLOGY LABORATORY Final Diagnosis Specimen A. SKIN, right preauricular skin: HYPERPLASTIC (HYPERTROPHIC) ACTINIC KERATOSIS, ACANTHOLYTIC (L57.0) SEBORRHEIC KERATOSIS, IRRITATED (L82.0) 2 4:54 PM [facility] DERMATOPATHOLOGY LABORATORY Clinical History R/O BCC 2 4:54 PM [facility] DERMATOPATHOLOGY LABORATORY Gross Description Specimen A: Received is one formalin filled container labeled with the patient's name and designated right preauricular skin. The specimen consists of a shave biopsy measuring [id number] mm. Jar 0. 2 4:54 PM [facility] DERMATOPATHOLOGY LABORATORY Microscopic Description Specimen A. SKIN, right preauricular skin: There is hyperkeratosis alternating with parakeratosis. There is epidermal hyperplasia with disorderly maturation of keratinocytes with nuclear pleomorphism confined to the lower half of the epidermis. There is acanthosis consisting of fairly uniform squamous cells with eosinophilic cytoplasm and squamous eddies. 2 4:54 PM [facility] DERMATOPATHOLOGY LABORATORY Disclaimer An external and internal positive and negative controls are appropriate for the histochemical, immunohistochemical and immunofluorescence stain(s) in this case (if any), except where stated explicitly. The performance characteristics of the stain(s) cited in this report were developed and its performance characteristic determined by the Dermatopathology Laboratory at [facility], directed by Dr. Emerald Brush. These tests need not be, and therefore are not, approved by the [place] Food and Drug Administration. The tests are used for clinical purposes. Billing Codes Specimen Charges Stain Charges 75413 1 2 4:54 PM ICE CREAM FREEZER ASSISTANT DERMATOPATHOLOGY LABORATORY Embedded Images 2 4:54 PM [facility] DERMATOPATHOLOGY LABORATORY Pathology/Cytolog y TISSUE SPECIMEN FROM SKIN / Unknown 08/13/2021 08/14/2021 2:07 PM ICE CREAM FREEZER ASSISTANT Jr Charles MD LAB - PATHOLOGY/CYTO LOGY ORDERABLES DERMATOPATHOLOGY LABORATORY [facility] - Department of Dermatology [facility] Medicine [address] [place] [address], [address] [phone] documented in this encounter Visit Diagnoses Not on filedocumented in this encounter Care Teams Manager Delivery Relationship Specialty Start Date End Date Pito Malave MD [address] [place] [address] PCP - General 05/01/08 documented as of this encounter
--- OUTSIDE RECORDS SUMMARY | 2024-09-21 08:24 | XMS_ITS | Encounter Summary ---
Author Organization [employer] Address 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
--- OUTSIDE RECORDS SUMMARY | 2024-09-21 08:24 | XMS_ITS | Encounter Summary ---
Author Organization [facility] Health Address [address] [place] [address] Care Team Providers Care Content Curator Name Role Phone Pito Malave MD Primary Care Provider Encounter Details Date Type Department Care Team (Late st Contact Info) Description 04/09/2018 Lab Requisition [facility] Care DermPath Lab [address] [place] [phone] Jr Charles MD [address] [place] [address] Social History Tobacco Use Types [...] Priority Date/Time Associated Diagnosis Comments DERMATOPATHOLOGY Routine 04/08/2018 12:0 0 AM CDT documented in this encounter Results * DERMATOPATHOLOGY (04/08/2018 12:00 AM CDT) Case Report Dermatopathology Report Case: [id number] Authorizing Provider: Jr Charles MD Collected: 04/08/2018 12:00 AM Pathologist: Wanda Leal MD Received: 04/09/2018 12:07 PM Specimens: A) - Skin, right upper inner thigh B) - Skin, left lower pretibia 3:22 PM [facility] [place] [facility] Final Diagnosis Specimen A. 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 SKIN, left lower pretibia: PSORIASIFORM DERMATITIS (L44.8) (see microscopic description and comment) 3:22 PM [facility] [place] [facility] Clinical History A: R/O erythema multiforme other. B: R/O HSV, eczema. 3:22 PM [facility] [place] [facility] Gross Description Specimen A: Received is one formalin filled container labeled with the patient's name and designated right upper inner thigh. The specimen consists of a punch biopsy measuring [id number], bisected. Jar 0. Specimen B: Received is one formalin filled container labeled with the patient's name and designated left lower pretibia. The specimen consists of a punch biopsy measuring [id number], bisected Jar 0. 3:22 PM [facility] [place] [facility] Microscopic Description Specimen A. SKIN, right upper inner thigh: There are lymphocytes around blood vessels and scattered histiocytes dissecting between collagen bundles. CD68 stain highlights the interstitial histiocytes. Colloidal iron stain reveals increased dermal mucin. Additional deeper sections were obtained and reviewed. Specimen B. SKIN, left lower pretibia: There is psoriasiform hyperplasia of the epidermis with focal parakeratosis and spongiosis. There is a superficial, mainly lymphohistiocytic inflammatory infiltrate. GMS and Gram stains are negative for microorganisms. COMMENT: The histological differential diagnosis includes early / partially treated psoriasis and a chronic eczematous dermatitis. 3:22 PM [facility] [place] [facility] Disclaimer An external and internal positive and negative controls are appropriate for the histochemical, immunohistochemical and immunofluorescence stain(s) in this case (if any), except where stated explicitly. The performance characteristics of the stain(s) cited in this report were developed and its performance characteristic determined by the Dermatopathology Laboratory at [facility]. These tests need not be, and therefore are not, approved by the [place] Food and Drug Administration. The tests are used for clinical purposes. Billing Codes Specimen Charges Stain Charges 39710 35623 1 1 78215 88704 68122 36286 1 1 1 1 8 3:22 PM CDT DERMATOPATHOLOGY LABORATORY Embedded Images 8 3:22 PM CDT DERMATOPATHOLOGY LABORATORY Pathology/Cytology TISSUE SPECIMEN FROM SKIN / Unknown 04/08/2018 04/09/2018 12:07 PM CDT Miscellaneous samples (specimen) TISSUE SPECIMEN FROM SKIN / Unknown 04/08/2018 04/09/2018 12:07 PM CDT Jr Charles MD LAB - PATHOLOGY/CYTO LOGY ORDERABLES DERMATOPATHOLOGY LABORATORY [facility] - Department of Dermatology [address] [place] [address] [phone] documented in this encounter Visit Diagnoses Not on filedocumented in this encounter Care Teams Content Curator Relationship Specialty Start Date End Date Pito Malave MD [address] [place] [phone] PCP - General 05/01/08 documented as of this encounter
[2024-09-21 09:10] LABS: Influenza A QL RT-PCR Positive (Negative); Influenza B QL RT-PCR Negative (Negative); RSV RNA, RT-PCR Negative (Negative); SARS-CoV-2 RNA PCR Negative (Negative)
== END 2024-09-21 08:16 | disposition home or self-care (01) ==
LOC: ANHLAB 08:16
PROVIDERS: PCP Internal Medicine; Visit Provider Internal Medicine
DX: R50.9 Fever, unspecified (principal); Z20.822 Contact with and (suspected) exposure to COVID-19
CPT/HCPCS: 87637

== ENCOUNTER 2024-10-13 08:37 | Outpatient (CLI) | payer MEDICARE, SELFPAY ==
--- NOTE | ~2024-10-13 | MMUS_ITS ---
EXAMINATION: MM diagnostic becca LT w nj, US breast LT limited HISTORY: 69-year-old woman presents for diagnostic evaluation of a developing left breast asymmetry in the medial aspect, middle third described on screening mammogram dated 09/08/2024. TECHNIQUE: Additional 3-D tomosynthesis images of left breast were performed and synthetic 2-D images were generated. CAD analysis was submitted and interpreted. High resolution limited left breast ultrasound was performed. COMPARISON: 09/08/2024 and dating back to 09/12/2019. No prior ultrasound evaluations have been performed BREAST PARENCHYMAL COMPOSITION:Not Dense. There are scattered areas of fibroglandular density. FINDINGS: MAMMOGRAPHIC FINDINGS: Spot compression view in the CC and is unremarkable when compared with prior studies. Within the upper left breast approximately 5 cm from the nipple is an indeterminate asymmetry, minima lly distorting the surrounding tissues, possibly artifactual, for which focused ultrasound will be pe rformed. ULTRASOUND: At the 12:00 position of the left breast approximately 5 cm from the nipple is a 9.6 x 3.9 x 8 mm foc us of decreased echogenicity with no increased vascularity, but demonstrates the surrounding distorti on, seen on mammography, primarily in the transverse view. Trace posterior shadowing is present, spec ifically on cine views. Sonographic evaluation of the remainder of the upper left breast demonstrates benign fibroglandular e lements without a cystic or solid lesion of concern. IMPRESSION: Findings at the 12:00 position of the left breast approximately 5 cm from the nipple for which ultras ound-guided biopsy is suggested (as detailed above). BI-RADS category 4, suspicious findings. Reviewed, dictated and finalized at location A. IMPRESSION: Findings at the 12:00 position of the left breast approximately 5 cm from the n ipple for which ultrasound-guided biopsy is suggested (as detailed above). BI-RADS category 4, suspicious findings.
== END 2024-10-13 08:38 | disposition home or self-care (01) ==
PROVIDERS: PCP Internal Medicine; Visit Provider Obstetrics & Gynecology
DX: R92.2 Inconclusive mammogram (principal)
CPT/HCPCS: 76642; 77061; 77065; G0279

== ENCOUNTER 2025-01-05 07:20 | Outpatient (CLI) | payer MEDICARE, SELFPAY ==
--- OUTSIDE RECORDS SUMMARY | 2025-01-05 07:23 | XMS_ITS | Encounter Summary ---
Author Organization [facility] Address [address] [facility] [place] [address] Care Team Providers Care Collection Team Lead Name Role Phone Pito Malave MD Primary Care Provider Encounter Details Date Type Department Care Team (Late st Contact Info) Description 04/09/2018 Lab Requisition 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 Gender Identity Not on file Sexual Orientation Not on file documented as of this encounter Plan of Treatment Not on file documented as of this encounter Procedures Procedure Name Priority Date/Time Associated Diagnosis Comments DERMATOPATHOLOGY Routine 04/08/2018 12:0 0 AM CDT documented in this encounter Results * DERMATOPATHOLOGY (04/08/2018 12:00 AM CDT) Case Report Dermatopathology Report Case: [id number] Authorizing Provider: Jr Charles MD Collected: 04/08/2018 12:00 AM Pathologist: Wanda Leal MD Received: 04/09/2018 12:07 PM Specimens: A) - Skin, right upper inner thigh B) - Skin, left lower pretibia 3:22 PM CDT DERMATOPATHOLOGY LABORATORY Final Diagnosis Specimen A. 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 SKIN, left lower pretibia: PSORIASIFORM DERMATITIS (L44.8) (see microscopic description and comment) 3:22 PM CDT DERMATOPATHOLOGY LABORATORY at 1522 CDT Clinical History A: R/O erythema multiforme other. B: R/O HSV, eczema. 3:22 PM CDT DERMATOPATHOLOGY LABORATORY Gross Description Specimen A: Received is one formalin filled container labeled with the patient's name and designated right upper inner thigh. The specimen consists of a punch biopsy measuring [id number], bisected. Jar 0. Specimen B: Received is one formalin filled container labeled with the patient's name and designated left lower pretibia. The specimen consists of a punch biopsy measuring [id number], bisected Jar 0. 3:22 PM CDT DERMATOPATHOLOGY LABORATORY Microscopic Description Specimen A. SKIN, [...] and a chronic eczematous dermatitis. 3:22 PM T DERMATOPATHOLOGY LABORATORY Disclaimer An external and internal positive and negative controls are appropriate for the histochemical, immunohistochemical and immunofluorescence stain(s) in this case (if any), except where stated explicitly. The performance characteristics of the stain(s) cited in this report were developed and its performance characteristic determined by the Dermatopathology Laboratory at [facility]. These tests need not be, and therefore are not, approved by the [place] Food and Drug Administration. The tests are used for clinical purposes. Billing Codes Specimen Charges Stain Charges 62547 58913 1 1 98866 39909 76210 15377 1 1 1 1 8 3:22 PM CDT DERMATOPATHOLOGY LABORATORY Embedded Images 8 3:22 PM CDT DERMATOPATHOLOGY LABORATORY Pathology/Cytology TISSUE SPECIMEN FROM SKIN / Unknown 04/08/2018 04/09/2018 12:07 PM CDT Miscellaneous samples (specimen) TISSUE SPECIMEN FROM SKIN / Unknown 04/08/2018 04/09/2018 12:07 PM CDT Jr Charles MD LAB - PATHOLOGY/CYTOLOGY ORD ERABLES Final Result DERMATOPATHOLOGY LABORATORY [facility] - Department of Dermatology [address] [place] [address], 5[address] Floor Lab [address] [phone] documented in this encounter Visit Diagnoses Not on filedocumented in this encounter Care Teams Collection Team Lead Relationship Specialty Start Date End Date Pito Malave MD [address] [place] [phone] PCP - General 05/01/08 documented as of this encounter
--- OUTSIDE RECORDS SUMMARY | 2025-01-05 07:23 | XMS_ITS | Encounter Summary ---
Author Organization [facility] Address 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
--- OUTSIDE RECORDS SUMMARY | 2025-01-05 07:23 | XMS_ITS | Encounter Summary ---
Author Organization [facility] Health Address [address] [place] [address] Care Team Providers Care Forming Process Worker Name Role Phone Pito Malave MD Primary Care Provider [phone] Encounter Details Date Type Department Care Team (Late st Contact Info) Description 08/14/2021 Lab Requisition [facility] DermPath Lab [address] [place] [phone] Jr Charles MD [address] [place] [address] Social History Tobacco Use Types Packs/Day Years Used Date Smoking Tobacco: Former Alcohol Use Standard Drinks/Week Comments Yes 0 (1 standard drink = 0.6 oz pur e alcohol) Comments Unknown Sex and Gender Information Value Date Recorded Sex Assigned at Not on file 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 Gender Identity Not on file Sexual Orientation Not on file documented as of this encounter Plan of Treatment Not on file documented as of this encounter Procedures Procedure Name Priority Date/Time Associated Diagnosis Comments DERMATOPATHOLOGY Routine 08/13/2021 12:0 0 AM MICROBIOLOGY PROFESSOR documented in this encounter Results * DERMATOPATHOLOGY (08/13/2021 12:00 AM MICROBIOLOGY PROFESSOR) Case Report Dermatopathology Report Case: [id number] Authorizing Provider: Jr Charles MD Collected: 08/13/2021 12:00 AM Ordering Location: [facility] DermPath Lab Received: 08/14/2021 02:07 PM Pathologist: Theron Brush MD Specimen: Skin, right preauricular skin 2 4:54 PM [facility] DERMATOPATHOLOGY LABORATORY Final Diagnosis Specimen A. SKIN, right preauricular skin: HYPERPLASTIC (HYPERTROPHIC) ACTINIC KERATOSIS, ACANTHOLYTIC (L57.0) SEBORRHEIC KERATOSIS, IRRITATED (L82.0) 2 4:54 PM [facility] DERMATOPATHOLOGY LABORATORY at [address] [facility] Clinical History R/O BCC 2 4:54 PM [facility] DERMATOPATHOLOGY LABORATORY Gross Description Specimen A: Received is one formalin filled container labeled with the patient's name and designated right preauricular skin. The specimen consists of a shave biopsy measuring [id number] mm. Jar 0. 4:54 PM [facility] DERMATOPATHOLOGY LABORATORY Microscopic Description Specimen A. SKIN, right preauricular skin: There is hyperkeratosis alternating with parakeratosis. There is epidermal hyperplasia with disorderly maturation of keratinocytes with nuclear pleomorphism confined to the lower half of the epidermis. There is acanthosis consisting of fairly uniform squamous cells with eosinophilic cytoplasm and squamous eddies. 2 4:54 PM [facility] DERMATOPATHOLOGY LABORATORY Disclaimer An external and internal positive and negative controls are appropriate for the histochemical, immunohistochemical and immunofluorescence stain(s) in this case (if any), except where stated explicitly. The performance characteristics of the stain(s) cited in this report were developed and its performance characteristic determined by the Dermatopathology Laboratory at [facility], directed by Dr. Emerald Brush. These tests need not be, and therefore are not, approved by the [place] Food and Drug Administration. The tests are used for clinical purposes. Billing Codes Specimen Charges Stain Charges 51165 1 2 4:54 PM [facility] DERMATOPATHOLOGY LABORATORY Embedded Images 2 4:54 PM [facility] DERMATOPATHOLOGY LABORATORY Pathology/Cytolog y TISSUE SPECIMEN FROM SKIN / Unknown 08/13/2021 08/14/2021 2:07 PM [facility] Jr Charles MD LAB - PATHOLOGY/CYTOLOGY ORD ERABLES Final Result DERMATOPATHOLOGY LABORATORY [facility] Department of Dermatology [facility] Medicine [address] [place] [address], [address] [phone] documented in this encounter Visit Diagnoses Not on filedocumented in this encounter Care Teams Forming Process Worker Relationship Specialty [place] [address] [place] [phone] PCP - General 05/01/08 documented as of this encounter
--- OUTSIDE RECORDS SUMMARY | 2025-01-05 07:24 | XMS_ITS | Clinical Summary ---
Author Organization [facility] Address [address] [place] [address] Care Team Providers Care Biodiesel Product Manager Name Role Phone Pito Malave MD Primary Care Provider [phone] Source Comments [facility] Affiliates and Associated Physician Practices is amultiple site organization consisting of ambulatory clinics and hospital sitesin [place], [place], [place] and [place]. This disclosure is being madepursuant to the Care Everywhere program and may not contain all information available regarding this patient. 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 Gender Identity Not on file Sexual Orientation [...] 7:15 AM CDT Height 172.7 cm (5' 8) 11/20/2015 7:15 AM CDT Body Mass Index [...] SCREENING 1955 LIPID TESTING 1955 MAMMOGRAM 1955 HEPATITIS C SCREENING 06/09/1973 DTAP/TDAP/TD VACCINES (1 - Tdap) 1974 PNEUMOCOCCAL VACCINE 50+ (1 of 1 - PCV) 2005 ZOSTER VACCINE (1 of 2) 2005 COVID-19 VACCINE (1 - 2023-2 5 season) 2024 DEPRESSION SCREENING 07/20/2024 INFLUENZA VACCINE (Season Ended) 2025 Respiratory Syncytial Virus (RSV) Vaccine Pt: or [...] to complete this topic MENINGOCOCCAL (Group B) VACC INE SHARED DECISION-MAKING Aged Out No longer eligibl e based on patient's age to complete this topic MENINGOCOCCAL GROUPS A/C/Y/W VACCINE Aged Out No longer eligible b ased on patient's age to complete this topic Insurance DAVID Member Subscriber Plan / Payer (Ef fective 2013-Present) Name:Annemarie Parker Relation to Subscriber:Spouse Name:BENEIDCTO PARKER Subscriber ID:Not on file Date of :1956 Payer ID:[id number] (NAIC) Type:PPO Address: [address] [place] [id number] MEDICARE Care Teams Biodiesel Product Manager Relationship Specialty Start Date End Date Pito Malave MD [address] [place] [phone] PCP - General 05/01/08
--- OUTSIDE RECORDS SUMMARY | 2025-01-05 07:24 | XMS_ITS | Clinical Summary ---
Author Organization [facility] Address [address] 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 Gender Identity Not on file Sexual Orientation Not on file Plan of Treatment Health Maintenance Due Date Last Done Comments DTAP/TDAP/TD VACCINES (1 - Tdap) 1974 FIT-DNA Q 3 years 2000 FIT/FOBT Q 1 year 2000 Flex Sig/CT Colonography Q 5 years 2000 PNEUMOCOCCAL VACCINE 50+ YEA RS (1 of 1 - PCV) 2005 ZOSTER VACCINE (1 of 2) 2005 BREAST CANCER SCREENING 09/12/2020 09/12/19 20, 09/12/2019, 09/01/2018, Additional history exists OSTEOPOROSIS SCREENING 09/01/2023 09/01/2018 INFLUENZA VACCINE (#1) 2024 COLORECTAL SCREENING 03/18/2027 03/18/2017 Colorectal Cancer Screening 03/18/2027 RSV VACCINE (60+ or ) (1 - 1-dose 75+ series) 2030
--- OUTSIDE RECORDS SUMMARY | 2025-01-05 07:24 | XMS_ITS | Data Portability ---
Author Organization [facility] [place] Address [address] [place] [address] [place] [address] Care Team Providers Care Website/Blog Editor Name Role Phone RACHID FORRESTER Primary Care Provider Assessment Encounter Date Assessment [...] a year unless there are new symptoms. [email or web address] Not available 06/09/2024 10:03:29 Plan of Treatment Reminders Order Date Submit Date Provider Last Modified By Organization Details Last Modified Time Details Appointments None recorded. Lab None recorded. Referral None recorded. Procedures None recorded. Surgeries None recorded. Imaging DEXA, axial skeleton + vertebral fracture assessment 2023 024 DEVI [facility], [address], [place], [address], 5 04:11:42 MAMMO, screening, digital, bilateral 2023 024 [email or web address] [facility], [address], [place], [address], 5 15:37:24 DEXA, axial skeleton + vertebral fracture assessment 2020 021 [email or web address] [facility], [address], [address] [address], [place], [address], 16:56:23 Medication Orders None recorded. Patient TargetsNo targets recorded. Patient InstructionsNo instructions recorded. Reason for Referral None Reported. Results Created Date Observation Date Name Description Value Unit Range Abnormal Flag Note LastModifiedBy Organization Detail LastModifiedTime 12/26/19 21 12/25/2020 CBC w/ auto diff WBC 6.1 10'3/ uL 3.6-10 .2 Not Available [facility] (Lab) [address], [place], [address], 12/26/2020 05:50:14 12/26/19 21 12/25/2020 CBC w/ auto diff RBC 4.60 10'6/ uL (based on docume nted legal sex) 4.10-5 .30 Not Available [facility] (Lab) [address], [place], [address], 12/26/2020 05:50:14 12/26/19 21 12/25/2020 CBC w/ auto diff HGB 13.2 g/dL (based on docume nted legal sex) 11.9-1 5.8 Not Available [facility] (Lab) [address], [place], [address], 12/26/2020 05:50:14 12/26/19 21 12/25/2020 CBC w/ auto diff HCT 41.8 % (based on docume nted legal sex) 37.4-4 8.3 Not Available [facility] (Lab) [address], [place], [address], 12/26/2020 05:50:14 12/26/19 21 12/25/2020 CBC w/ auto diff MCV 92.0 fL 82.0-9 9.0 Not Available [facility] (Lab) [address], [place], [address], 12/26/2020 05:50:14 12/26/19 21 12/25/2020 CBC w/ auto diff MCH 29.0 pg 27.0-3 3.0 Not Available [facility] (Lab) [address], [place], [address], 12/26/2020 05:50:14 12/26/19 21 12/25/2020 CBC w/ auto diff MCHC 32.0 g/dL 32.0-3 6.0 Not Available [facility] (Lab) [address], [place], [address], 12/26/2020 05:50:14 12/26/19 21 12/25/2020 CBC w/ auto diff RDW 13.0 % 11.0-1 5.0 Not Available [facility] (Lab) [address], [place], [address], 12/26/2020 05:50:14 12/26/19 21 12/25/2020 CBC w/ auto diff plt 277 10'3/ uL 150-45 0 Not Available [facility] (Lab) [address], [place], [address], 12/26/2020 05:50:14 12/26/19 21 12/25/2020 CBC w/ auto diff MPV 11.5 fL Not Available [facility] (Lab) [address], [place], [address], 12/26/2020 05:50:14 12/26/19 21 12/25/2020 CBC w/ auto diff NRBC's 0.00 % 0 Not Available [facility] (Lab) [address] [place], [address], 12/26/2020 05:50:14 12/26/19 21 12/25/2020 CBC w/ auto diff absolute NRBCs 0.0 10'3/ uL 0 Not Available [facility] (Lab) [address] [place], [address], 12/26/2020 05:50:14 12/26/19 21 12/25/2020 CBC w/ auto diff neutrophils 48.0 % 37.0-7 2.0 Not Available [facility] (Lab) [address] [facility], [place], [address], 12/26/2020 05:50:14 12/26/19 21 12/25/2020 CBC w/ auto diff lymphocytes 30.0 % 16.0-4 8.0 Not Available [facility] (Lab) [address] [facility], [place], [address], 12/26/2020 05:50:14 12/26/19 21 12/25/2020 CBC w/ auto diff monocytes 11.0 % 4.0-14 .0 Not Available [facility] (Lab) [address] [place], [address], 12/26/2020 05:50:14 12/26/19 21 12/25/2020 CBC w/ auto diff eosinophils 9.0 % 0.0-9. 0 Not Available [facility] (Lab) [address] [place], [address], 12/26/2020 05:50:14 12/26/19 21 12/25/2020 CBC w/ auto diff basophils 2.0 % 0.0-2. 0 Not Available [facility] (Lab) [address] [place], [address], 12/26/2020 05:50:14 12/26/19 21 12/25/2020 CBC w/ auto diff immature granulocytes 0.0 % no define d refere nce range Not Available [facility] (Lab) [address] [place], [address], 12/26/2020 05:50:14 12/26/19 21 12/25/2020 CBC w/ auto diff absolute neutrophils 2.9 10'3/ uL 1.1-6. 0 Not Available [facility] (Lab) [address] [place] [facility] [place] [place], [address], 12/26/2020 05:50:14 12/26/19 21 12/25/2020 CBC w/ auto diff absolute lymphocytes 1.8 10'3/ uL 0.7-3. 4 Not Available [facility] (Lab) [address] [facility], [place], [address], 12/26/2020 05:50:14 12/26/19 21 12/25/2020 CBC w/ auto diff absolute monocytes 0.7 10'3/ uL 0.3-1. 0 Not Available [facility] (Lab) [address] [facility], [place], [address], 12/26/2020 05:50:14 12/26/19 21 12/25/2020 CBC w/ auto diff absolute eosinophils 0.6 10'3/ uL 0.0-0. 6 Not Available [facility] (Lab) [address] [facility], [place], [address], 12/26/2020 05:50:14 12/26/19 21 12/25/2020 CBC w/ auto diff absolute basophils 0.1 10'3/ uL 0.0-0. 1 Not Available [facility] (Lab) [address] [facility], [place], [address], 12/26/2020 05:50:14 12/26/19 21 12/25/2020 CBC w/ [...] resul ts are expec shaquille. Not Available [facility] (Lab) [address] [place], [address], 12/26/2020 05:50:14 12/26/1912/25/2020 TSH, serum or plasm a TSH 0.02 uIU/m L 0.30-5 .33 low Not Available [facility] (Lab) [address] [place], [address], 12/26/2020 05:50:14 12/26/19 21 12/25/2020 phosp horus , serum or plasm a phosphorus 3.9 mg/dL 2.5-5. 0 Not Available [facility] (Lab) [address] [place], [address], 12/26/2020 05:50:15 12/26/19 21 12/25/2020 CMP, serum or plasm a sodium 140 mmol/ L 136-14 5 Not Available [facility] (Lab) [address] [place], [address], 12/26/2020 05:50:15 12/26/19 21 12/25/2020 CMP, serum or plasm a potassium 4.5 mmol/ L 3.5-5. 1 Not Available [facility] (Lab) [address] [place], [address], 12/26/2020 05:50:15 12/26/1912/25/2020 CMP, serum or plasm a chloride 104 mmol/ L 98-107 Not Available [facility] (Lab) [address] [place], [address], 12/26/2020 05:50:15 12/26/1912/25/2020 CMP, serum or plasm a carbon dioxide 28 mmol/ L 21-31 Not Available [facility] (Lab) [address] [place], [address], 12/26/2020 05:50:15 12/26/1912/25/2020 CMP, serum or plasm a anion gap 8 mmol/ L 4-13 Not Available [facility] (Lab) [address] [place], [address], 12/26/2020 05:50:15 12/26/19 21 12/25/2020 CMP, serum or plasm a blood urea nitrogen 12 mg/dL 7-25 Not Available [facility] (Lab) [address] , [place], [address], 12/26/2020 05:50:15 12/26/19 21 12/25/2020 CMP, serum or plasm a creatinine 0.71 mg/dL 0.60-1 .30 Not Available [facility] (Lab) [address], [place], [address], 12/26/2020 05:50:15 12/26/19 21 12/25/2020 CMP, serum or plasm a GFR () 100 mL/mi n/1.7 3_m2 60-300 Not Available [facility] (Lab) [address] [facility], [place], [address], 12/26/2020 05:50:15 12/26/19 21 12/25/2020 CMP, serum or plasm a GFR (others) 83 mL/mi n/1.7 3_m2 60-300 Not Available [facility] (Lab) [address], [place], [address], 12/26/2020 05:50:15 12/26/19 21 12/25/2020 CMP, serum or plasm a calcium 9.5 mg/dL 8.6-10 .2 Not Available [facility] (Lab) [address] [place], [address], 12/26/2020 05:50:15 12/26/1912/25/2020 CMP, serum or plasm a glucose 86 mg/dL 70-100 Not Available [facility] (Lab) [address] [place], [address], 12/26/2020 05:50:15 12/26/19 21 12/25/2020 CMP, serum or plasm a protein, total 6.9 g/dL 6.4-8. 3 Not Available [facility] (Lab) [address] [place], [address], 12/26/2020 05:50:15 12/26/19 21 12/25/2020 CMP, serum or plasm a albumin 4.1 g/dL 3.5-5. 0 Not Available [facility] (Lab) [address] [place], [address], 12/26/2020 05:50:15 12/26/19 21 12/25/2020 CMP, serum or plasm a ALT 16 units /L 9-43 Not Available [facility] (Lab) [address] [place], [address], 12/26/2020 05:50:15 12/26/1912/25/2020 CMP, serum or plasm a alkaline phosphatase 81 units /L 34-104 Not Available [facility] (Lab) [address] [place], [address], 12/26/2020 05:50:15 12/26/19 21 12/25/2020 CMP, serum or plasm a AST 17 units /L 13-39 Not Available [facility] (Lab) [address] [place], [address], 12/26/2020 05:50:15 12/26/1912/25/2020 CMP, serum or plasm a bilirubin, total 0.5 mg/dL 0.2-1. 2 Not Available [facility] (Lab) [address] [place], [address], 12/26/2020 05:50:15 12/26/1912/25/2020 vitam in D, 25-hy droxy , total , serum vitamin D, 25-hydroxy, total 56.6 NG/mL 30-80 NOTE: Defic iency : <20 ng/mL Insuf ficie ncy: 20-29 ng/mL Optim um Level : 30-80 ng/mL Possi ble Toxic ity: >80 ng/mL Most patie nts with toxic ity have level s >150 ng/mL . Not Available [facility] (Lab) [address], [place], [address], 12/26/2020 05:50:15 12/26/19 21 12/25/2020 T4, free, serum T4, free 1.61 NG/dL 0.60-1 .40 high Not Available [facility] (Lab) [address] [facility], [place], [address], 12/26/2020 06:39:27 12/01/19 21 11/29/2020 MAMMO , scree chava, bilat eral No observ ation record ed. [facility] [address], [place], [address], 12/06/2020 12:44:51 12/14/19 21 DEXA, axial skele ton + verte bral fract ure asses sment No observ ation record ed. [facility] [address], [place], [address], 12/20/2020 11:17:42 12/14/19 21 DEXA, axial skele ton + verte bral fract ure asses sment No observ ation record ed. [facility] [address], [place], [address], 12/19/2020 10:45:08 03/05/20 22 03/05/2022 MAMMO , scree chava, bilat eral No observ ation record ed. [facility] [address], [place], [address], 03/13/2022 18:00:25 05/11/20 23 05/11/2023 MAMMO , scree chava, bilat eral No observ ation record ed. DEVI [facility] [address], [place], [address], 05/13/2023 17:14:54 02/20/20 25 09/08/2024 MAMMO , scree chava, bilat eral No observ ation record ed. [facility] [address], [place], [address], 09/26/2024 16:13:25 09/09/19 25 09/08/2024 MAMMO , scree chava, tomos ynthe sis, bilat eral No observ ation record ed. [email or web address] [facility] [address], [place], [address], 12/07/2024 15:54:30 10/14/19 25 10/13/2024 MAMMO , diagn ostic , digit al, unila teral No observ ation record ed. [email or web address] [facility] [address], [place], [address], 11/17/2024 15:09:31 10/15/19 25 10/13/2024 MAMMO , diagn ostic , tomos ynthe sis, unila teral No observ ation record ed. [email or web address] [facility] [address], [place], [address], 12/07/2024 15:56:58 Result Notes None recorded. Problems Name Problem SNOMED Code Status Onset Date Resolution Date Notes Provider Name and Address Organization Details Recorded Time Tomasa marrero medical examinat ion Completed 201112/25/2021 Routine gynecolog ical examinati on;Practi ce ID: [id number] Loni coker [facility] 2 09:35:54 Screenin g for malignan t neoplasm of cervix Completed 201112/25/2021 Pap Smear;Pra ctice ID: [id number] Loni coker [facility] 2 09:35:54 Screenin g for malignan t neoplasm of rectum Completed 201112/25/2021 Screening for malignant neoplasms of the rectum;Pr actice ID: [id number] Loni coker [facility] 2 09:35:54 Leukocyt osis [id number] Completed 201212/25/2021 LEUKOCYTO SIS NOS;Pract ice ID: [id number] Loni coker [facility] 2 09:35:54 Adult health examinat ion Completed 201312/25/2021 Routine general medical examinati on at a health care facility; Practice ID: [id number] Loni Meyers [facility] 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 2 09:35:[address] Concept Completed 201712/25/2021 Encntr for general adult medical exam w/o abnormal findings; Recorded Elsewhere : No Locati on: [facility] So urce: EHR Chron ic: N Practic e ID: [id number] Bill able Time: 10:30:00 AM Loni coker [facility] 2 09:35:54 Cervicov aginal cytology specimen unsatisf actory [id number] Completed 201712/25/2021 Unsatisfa ctory cytologic smear of cervix;Re corded Elsewhere : No Locati on: [facility] So urce: EHR Chron ic: N Practic e ID: 0001 Bill able Time: 10:30:00 AM Loni coker [facility] 2 09:35:54 Problem Notes None recorded. Procedures Surgical History Date Name Laterality Status Provider Name and Address Organization Details Recorded Time Most Recent Bone Density completed Loni Meyers [facility] 12/25/2021 10:11:35 1 Date of Last Mammogram completed Loni Meyers [facility] 12/25/2021 10:11:15 0 Date of Last Pap Smear completed Sejal [facility] 10/10/2020 14:29:04 ligation of bilateral fallopian tubes completed [facility]jal [facility] 10/10/2020 14:32:13 procedure on back completed Sejal [facility] 10/10/2020 14:32:19 LEEP completed Sejal [facility] 10/10/2020 14:32:24 Colon[facility] 10/10/2020 14:32:29 Imaging Results None recorded. Procedure Notes None recorded. Medical Equipment None Reported. Allergies Allergen ID Allergen Name Allergen Category Reaction Reaction Severity Criticality Documentation Date Start Date Code Code System Note Provider Name and Address Organization Details Recorded Time 59253 Product containin g penicilli n (product) medicatio n Not available Not available Not available 07/06/2020 55044 8001 SNOMED React ion: Unkno wn; Comme nt: [facility]at [facility]; Not Available [facility] 0 14:20:27 Medications Name Sig [...] route every day 12/25 completed Prescrib ed Elsew e: Yes Loca tion: [facility] M odify By: kwaku dyer DateTime : 02/25/20 11 12:08:48 PM Not Available Not Available Not Available levothyro xine 125 mcg tablet TAKE 1 TABLET BY MOUTH DAILY active Not Available Not Available No t Available Estrace 0.01% (0.1 mg/gram) vaginal cream insert (1G) by vaginal route every week 07/21 completed Prescrib ed Elsewher e: No Locat ion: Delaney cohen [facility] odify By: [email or web address] Encount er DateTime : 05/22/20 16 09:30:00 AM Not Available Not Available Not Available Vitamins and Minerals tablet active Prescrib ed Elsewher e: Yes Loca tion: [facility] odify By: dorothy rosenthal DateTime : [...] Elsewher e: Yes Loca tion: Delaney cohen [facility] odify By: Encount er DateTime : 03/17/20 12 03:30:00 PM Not Available Not Available Not Available Calcio Mirian 500 mg tablet active Prescrib ed Elsewher e: Yes Loca tion: Delaney cohen [facility] odify By: [email or web address] Encounte r DateTime : 02/25/20 11 12:08:48 PM Not Available Not Available Not Available trazodone 12/25 completed Not Available Not Available Not Available Vitamin D3 10 mcg (400 unit) capsule active Prescrib ed Elsewher e: Yes Loca tion: [facility] odify By: [email or web address] Encounte r DateTime : 02/25/20 11 12:08:48 PM Not Available Not Available Not Available Xyzal 5 mg tablet take 1 tablet by oral route every day in the evening active Prescrib ed Elsewher e: Yes Loca tion: [facility] odify By: [email or web address] Encount er DateTime : 07/21/19 20 09:00:00 AM Not Available Not Available Not Available WelChol 3.75 gram oral powder packet take 1 packet by oral route every day dissolve d in 120 to 240ml of water; stir and drink with a meal 03/17 completed Prescrib ed Elsewher e: Yes Loca tion: [facility] odify By: brodie schuler DateTime : 03/17/20 03:30:00 PM Not Available Not Available Not Available Contrave 8 mg-90 mg tablet,ex tended release active Not Available Not Available Not Available Vitals Date Recorded Body height Body mass index (BMI) Body weight Systolic blood pressure Diastolic blood pressure Provider Name and Address Organization Details Last Updated DateTime 10/11/2020 170.18 cm 25.7 kg/m2 68524.15 g 127 mm[Hg] 74 mm[Hg] Sejal Pan [facility] 09:30:48 Date Recorded Systolic blood pressure Diastolic blood pressure Provider Name and Address Organization Details Last Updated DateTime 12/25/2021 124 mm[Hg] 74 mm[Hg] Laly Gavin, [facility]- [address], [place], [address], [facility] 12/25/2021 10:31:05 Date Recorded Body height Body mass index (BMI) Body weight Provider Name and Address Organization Details Last Updated DateTime 12/25/2021 166.37 cm 24.5 kg/m2 84152.14 g Loni Meyers [facility] 12/25/2021 10:09:47 Date Recorded Body height Body mass index (BMI) Body weight Systolic blood pressure Diastolic blood pressure Provider Name and Address Organization Details Last Updated DateTime 06/09/2024 166.37 cm 28 kg/m2 95835.3 g 144 mm[Hg] 69 mm[Hg] Makayla Etienne [facility] 10:06:29 Social History Question Answer Notes LastModified by Organizat ion Details LastModified Time Tobacco Smoking Status Never Smoker Loni Meyers [facility], [facility] 12/25/2021 10:12:10 Are You Blind Or Do You Have Difficulty Seeing? No Information n ot available 12/25/2021 What Is Your Level Of Caffeine Consumption? Occasional Information not available 12/25/2021 In The 14 Days Before Symptom Onset, Have You Had Close Contact With A Laboratory-confirm ed COVID-19 While That Case Was Ill? No [email or web address] Information n ot available 06/09/2024 In The 14 Days Before Symptom Onset, Have You Had Close Contact With A Person Who Is Under Investigation For COVID-19 While That Person Was Ill? No [email or web address] Information not available 06/09/2024 Have You Been To An Area Known To Be High Risk For COVID-19? No [email or web address] Information not available 06/09/2024 Are You Deaf [...] Yes Information not available 12/25/2021 Do You Use Sunscreen Routinely? Yes Information not available 12/25/2021 Do You Have Difficulty Walking Or Climbing Stairs? No Information not available 12/25/2021 Sex: Unknown Functional Status Question Answer Note LastModified by Organizat ion Details LastModified Time Do you use any illicit or recreational drugs? No Information not available 12/25/2021 What is your level of alcohol consumption? Occasional Information not available 12/25/2021 Are you able to walk? YESWOREST Information not available 12/25/2021 Are you able to care for yourself? Yes Information n ot available 12/25/2021 Do you have difficulty dressing or bathing? No Information not available 12/25/2021 What is your exercise level? Occasional Information not available 12/25/2021 Mental Status Question Answer Note LastModified by Organization D etails LastModified Time Do you feel stressed (tense, restless, nervous, or anxious, or unable to sleep at night)? [id number] Information not available 12/25/2021 Family History Relationship Description Onset Age of [...] SNOMED-CT Code Diagnosis ICD10 Code Diagnosis Note [id number] Laly Gavin [facility] [address] [address] 10/11/2020 09:19:51 10/11/2020 10:17:18 Gynecologic examination 47351359 Z01.419 Take Calcium with Vitamin D 12-1500mg daily. Do monthly self breast exams. It is advised to get annual flu shot in the fall and she could obtain at [facility] or [facility] care clinic. If you haven't received the [...] respond to this email Monogamous Hx of Leelesly 2002 We decided today we would do pap/hpv q2-3yrs and at some point re-evaluat e the need. Postmenopa usal osteopenia [id number] Z78.0 [id number] Laly Gavin [facility] [address] [address] 12/25/2021 09:43:32 12/25/2021 11:23:25 Gynecologic examination 62862032 Z01.419 Take Calcium with Vitamin D 12-1500mg daily. Do monthly self breast exams. It is advised to get annual flu shot in the fall and she could obtain at [facility] care clinic. If you haven't received the [...] call or respond to this email Pap/hpvUSP STF recommends against screening for cervical cancer in women older than 65yo, those who've had a hysterecto my for non-cancer indication s, & who have had adequate prior screening & are not otherwise at high risk for cervical cancer. STD Screen declined Genetic Screen discussed Colon Screen UTD PCP Dexa Screen UTD PCP Routine Labs UTD PCPMammo ordered [id number] ARUNA Hussein [facility] [address] [address] 06/09/2024 09:56:48 06/09/2024 10:36:24 Gynecologic examination 61008045 Z01.419 WWEpap sentdeclin ed STI screenmamm ogram [...] answered. Screening for malignant neoplasm of breast 624500627 Z12.39 Screening for osteoporosis 197054054 Z13.820 Health Concerns Section Related Observation LastModified by Organization Detai ls LastModified Time None Recorded Concern Status LastModified by Organization Details LastModified Time None Recorded Advance Directives Directive None Recorded Payers Insurance Date Sequence Insurance Name Policy Number Policy Batres Covered Member ID Batres Member ID Guarantor Name 10/14/2024 1 [employer] (MEDICARE REPLACEMENT/ ADVANTAGE - PPO) [id number] Annemarie Sarmiento Elena [id number] Annemarie Sarmiento Elena 10/14/2024 1 [place] Annemarie Sarmiento Elena [id number] Annemarie Sarmiento Elena 12/25/2021 2 [place] [id number] Benedicto E Elena [id number] Annemarie Sarmiento Elena 04/06/2024 2 [place] [id number] Benedicto E Elena [id number] Annemarie Sarmiento Elena Notes Date Note Type Note Provider Name and Address Organization Details Recorded Time 10/11/2020 text/html Annual Founder And Ceo Post-MenopausalRe ported bypatient.Menopau bob Symptoms:no menopausal symptoms; [...] recent colonoscopy; needs to schedule bone density AURNA Jaimes- [address], [place], [address], [facility] 10/11/2020 10:01:43 12/25/2021 text/html Annual Founder And Ceo Post-MenopausalRe ported bypatient.Menopau bob Symptoms:no menopausal symptoms; [...] to schedule mammogram; history of recent colonoscopy ARUNA Jaimes- [address], [place], [address], [facility] 12/25/2021 10:33:14 06/09/2024 text/html Annual Founder And Ceo Post-MenopausalRe ported bypatientSherriMenerrol bob Symptoms:no menopausal symptoms; normal vaginal lubrication [...] 2002 last pap 07/2019 : - normal ARUNA Hussein [address], [place], [address], [facility] 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
[2025-01-05 07:43] LABS: Basophils Absolute Auto 0.1 K/mm3 (0.0-0.1); Basophils Percent Auto 1.4 % (0.2-1.2); Eosinophils Absolute Auto 0.3 K/mm3 (0-0.3); Hematocrit 40.5 % (37.0-47.0); Hemoglobin 13.2 g/dL (12.0-15.0); Immature Granulocyte Absolute 0.01 K/mm3 (0.00-0.031); Immature Granulocyte Percent A 0.2 % (0-0.5); Lymphocytes Percent Auto 33.8 % (18.3-44.2); Mean Corpuscular HGB Conc 32.6 g/dl (32-36); Mean Corpuscular Hemoglobin 28.9 pg (26-34); Mean Corpuscular Volume 88.8 fl (80-100); Mean Platelet Volume 10.2 fl (7.4-10.4); Monocytes Absolute Auto 0.7 K/mm3 (0.1-0.6); Monocytes Percent Auto 13.2 % (2.6-8.5); Neutrophils Absolute Auto 2.6 K/mm3 (1.3-6.7); Neutrophils Percent Auto 46.4 % (45.5-73.1); Platelet Count Result 272 k/mm3 (150-375); Red Blood Count 4.56 M/mm3 (4.2-5.4); Red Cell Distribution Width 13.4 % (11.5-14.5); White Blood Count 5.6 K/mm3 (4.5-10.0)
[2025-01-05 07:55] LABS: Alanine Aminotransferase 19 U/L (6-35); Albumin Level 4.2 g/dL (3.5-5.1); Alkaline Phosphatase 83 U/L (38-126); Anion Gap 8 mmol/L (4-12); Aspartate Amino Transferase 33 U/L (14-36); Bilirubin,Total 0.6 mg/dL (0.2-1.3); Blood Urea Nitrogen 17 mg/dL (7-17); Calcium 9.4 mg/dL (8.4-10.2); Carbon Dioxide 24 mmol/L (22-30); Chloride 105 mmol/L (98-107); Cholesterol 194 mg/dL (0-200); Estimated Glomerular Filt Rate > 60; Glucose 94 mg/dL (65-110); HDL Direct 76 mg/dL; Potassium 4.5 mmol/L (3.4-5.0); Sodium 137 mmol/L (137-145); Total Protein 7.7 g/dL (6.3-8.2); Triglycerides 165 mg/dL (<150)
[2025-01-05 08:08] LABS: LDL Cholesterol Direct 76 mg/dL
[2025-01-05 08:19] LABS: Hemoglobin A1C 5.5 % (<5.7)
[2025-01-05 08:59] LABS: Free T4 Free Thyroxine 1.48 ng/dL (0.78-2.19); Vitamin D 25 Hydroxy 54.9 ng/mL
== END 2025-01-05 07:21 | disposition home or self-care (01) ==
LOC: ANHLAB 07:21
PROVIDERS: PCP Internal Medicine; Visit Provider Internal Medicine
DX: E03.9 Hypothyroidism, unspecified (principal); E78.2 Mixed hyperlipidemia; E55.9 Vitamin D deficiency, unspecified; Z79.899 Other long term (current) drug therapy; Z13.1 Encounter for screening for diabetes mellitus
CPT/HCPCS: 36415; 80053; 80061; 82306; 83036; 84439; 84443; 85025

== ENCOUNTER 2025-01-30 14:24 | Outpatient (CLI) | payer MEDICARE, SELFPAY ==
--- NOTE | ~2025-01-30 | DEXA_ITS ---
Bone Density Report Name: SHERRIE CASTILLO Age: 69 Sex: Female Ethnicity: White Date of : 1955 Indication: osteopenia; parental hip fracture; height loss; Referring Provider: LINDA, LORENA Macario Study: Bone densitometry was performed. Exam Date: January 30, 2025 Accession number: [id number] Bone Density: Region BMD T-score Z-score Classification Femoral Neck (Left) 0.666 -1.6 0.1 Osteopenia Total Hip (Left) 0.781 -1.3 0.2 Osteopenia Femoral Neck (Right) 0.683 -1.5 0.3 Osteopenia Total Hip (Right) 0.774 -1.4 0.1 Osteopenia Total Hip Mean 0.777 -1.4 0.2 Osteopenia World Health Organization criteria for BMD impression classify patients as: Normal (T-score at or above -1.0), Osteopenia (T-score between -1.0 and -2.5), or Osteoporosis (T-score at or below -2.5). 10-year Fracture Risk(1): Major Osteoporotic Fracture 16% Hip Fracture 2.9% Reported Risk Factors: [place] (), Neck BMD=0.666, BMI=29.4, parental fracture (1) FRAX(R) Version 3.08. Fracture probability calculated for an untreated patient. Fracture probability may be lower if the patient has received treatment. Previous Exams: Region Exam Age BMD T-score BMD Change BMD Change Date g/cm2 vs Baseline vs Previous Total Hip(Left) 01/30/2025 69 0.781 -1.3 0.001 (0.1%) 0.001 (0.1%) 11/29/2020 65 0.780 -1.3 Total Hip(Right) 01/30/2025 69 0.774 -1.4 -0.027 (-3.4%) -0.027 (-3.4%) 11/29/2020 65 0.801 -1.2 *Denotes significance at 95% confidence level, LSC for Total Hip = 0.027 g/cm2 Clinical Information Provided by Patient: Parent has had a hip fracture Has used the following medications: Vitamin D, Calcium Patient maximum height was 68.0 Menopause Age: 47 No regular weight bearing exercise Drinks caffeinated beverages Onset of menses at age 14 Number of children 2 Impression: The patient has low bone mass, based on the Left Femoral Neck T-score. The patient has an estimated ten-year risk of hip fracture of 2.9% and an estimated ten-year risk of major fracture of 16%, based on the WHO FRAX algorithm. The patient has risk factors, including: parental hip fracture. No significant bone loss was observed. Discussion: BONE DENSITY IS LOW AT ONE OR MORE SKELETAL SITES. This patient's lowest T-score is low at one or more skeletal sites. It meets the World Health Organization's (WHO) criteria for ?low bone mass? (T-score between -1.0 and -2.5). The patient's 10-year risk of fracture as calculated by FRAX is less than the threshold where pharmacological therapy is recommended by the National Osteoporosis Foundation (NOF). However, all treatment decisions require clinical judgment and consideration of individual patient factors, including patient preferences, comorbidities, previous drug use, risk factors not captured in the FRAX model (e.g., frailty, falls, vitamin D deficiency, increased bone turnover, interval significant decline in bone density) and possible under or overestimation of fracture risk by FRAX. The patient should follow a healthful lifestyle (good nutrition with adequate calcium and vitamin D, and appropriate weight-bearing exercise). Follow-Up: Consider repeating this study in 2 to 3 years to reassess this patient's status, or sooner if there is some new clinical indication. Reported by: ORAL on 01/30/2025 2:57:00 PM. Reviewed, dictated and finalized at location A.
--- OUTSIDE RECORDS SUMMARY | 2025-01-30 14:29 | XMS_ITS | Encounter Summary ---
Author Organization [facility] Health Address [address] [facility] [place] [address] Care Team Providers Care Director Of Surgery Name Role Phone Pito Malave MD Primary Care Provider Encounter Details Date Type Department Care Team (Late st Contact Info) Description 04/09/2018 Lab Requisition [facility] Care DermPath Lab [address] [place] [phone] Jr Charles MD [address] [place] [address] Social History Tobacco Use Types Packs/Day Years Used Date Smoking Tobacco: Former Alcohol Use Standard Drinks/Week Comments Yes 0 (1 standard drink = 0.6 oz pur e alcohol) Comments Unknown Sex and Gender Information Value Date Recorded Sex Assigned at Not on file 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 Jar 0. Specimen B: Received is one formalin filled container labeled with the patient's name and designated left lower pretibia. The specimen consists of a punch biopsy measuring [id number], bisected Jar 0. 3:22 PM CDT DERMATOPATHOLOGY [...] characteristic determined by the Dermatopathology Laboratory at [facility]. These tests need not be, and therefore are not, approved by the [place] Food and Drug Administration. The tests are used for clinical purposes. Billing Codes Specimen Charges Stain Charges 71313 70139 1 1 90499 52007 36319 48657 1 1 1 1 8 3:22 PM CDT DERMATOPATHOLOGY LABORATORY Embedded Images 8 3:22 PM CDT DERMATOPATHOLOGY LABORATORY Pathology/Cytology TISSUE SPECIMEN FROM SKIN / Unknown 04/08/2018 04/09/2018 12:07 PM CDT Miscellaneous samples (specimen) TISSUE SPECIMEN FROM SKIN / Unknown 04/08/2018 04/09/2018 12:07 PM CDT Jr Charles MD LAB - PATHOLOGY/CYTOLOGY ORD ERABLES Final Result DERMATOPATHOLOGY LABORATORY [facility] - Department of Dermatology [address] [place] [address], 5th Floor Lab [address] [phone] documented in this encounter Visit Diagnoses Not on filedocumented in this encounter Care Teams Director Of Surgery Relationship Specialty Start Date End Date Pito Malave MD [address] [place] [phone] PCP - General 05/01/08 documented as of this encounter
--- OUTSIDE RECORDS SUMMARY | 2025-01-30 14:29 | XMS_ITS | Clinical Summary ---
Author Organization [employer] [facility] Address [address] 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
--- OUTSIDE RECORDS SUMMARY | 2025-01-30 14:29 | XMS_ITS | Clinical Summary ---
Author Organization [facility] Address [address] [facility] [place] [address] Care Team Providers Care Director Digital Sales Name Role Phone Pito Malave MD Primary Care Provider [phone] Source Comments [facility],non-[facility] Affiliates and Associated Physician Practices is amultiple site organization consisting of ambulatory clinics and hospital sitesin [place], [place], [place] and [place]. This disclosure is being madepursuant to the Care Everywhere program and may not contain all information available regarding this patient. 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
--- OUTSIDE RECORDS SUMMARY | 2025-01-30 14:29 | XMS_ITS | Encounter Summary ---
Author Organization [facility] Health Address [address] [facility] [place] [address] Care Team Providers Care Violin Repairer Name Role Phone Pito Malave MD Primary Care Provider [phone] Encounter Details Date Type Department Care Team (Late st Contact Info) Description 08/14/2021 Lab Requisition [facility] DermPath Lab [address] [place] [phone] Jr Charles MD [address] [place] [address] Social History Tobacco Use Types Packs/Day Years Used Date Smoking Tobacco: Former Alcohol Use Standard Drinks/Week Comments Yes 0 (1 standard drink = 0.6 oz pur e alcohol) Comments Unknown Sex and Gender Information Value Date Recorded Sex Assigned at Not on file 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 Gender Identity Not on file Sexual Orientation Not on file documented as of this encounter Plan of Treatment Not on file documented as of this encounter Procedures Procedure Name Priority Date/Time Associated Diagnosis Comments DERMATOPATHOLOGY Routine 08/13/2021 12:0 0 AM 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 SKIN, right preauricular skin: HYPERPLASTIC (HYPERTROPHIC) ACTINIC KERATOSIS, ACANTHOLYTIC (L57.0) SEBORRHEIC KERATOSIS, IRRITATED (L82.0) 2 4:54 PM [facility] DERMATOPATHOLOGY LABORATORY at [address] [facility] Clinical History R/O BCC 2 4:54 PM [facility] DERMATOPATHOLOGY LABORATORY Gross Description Specimen A: Received is one formalin filled container labeled with the patient's name and designated right preauricular skin. The specimen consists of a shave biopsy measuring [id number] mm. Jar 0. 4:54 PM [facility] DERMATOPATHOLOGY LABORATORY Microscopic Description Specimen A. SKIN, right preauricular skin: There is hyperkeratosis alternating with parakeratosis. There is epidermal hyperplasia with disorderly maturation of keratinocytes with nuclear pleomorphism confined to the lower half of the epidermis. There is acanthosis consisting of fairly uniform squamous cells with eosinophilic cytoplasm and squamous eddies. 2 4:54 PM [facility] DERMATOPATHOLOGY LABORATORY Disclaimer An external and internal positive and negative controls are appropriate for the histochemical, immunohistochemical and immunofluorescence stain(s) in this case (if any), except where stated explicitly. The performance characteristics of the stain(s) cited in this report were developed and its performance characteristic determined by the Dermatopathology Laboratory at [facility], directed by Dr. Emerald Brush. These tests need not be, and therefore are not, approved by the [place] Food and Drug Administration. The tests are used for clinical purposes. Billing Codes Specimen Charges Stain Charges 20562 1 2 4:54 PM [facility] DERMATOPATHOLOGY LABORATORY Embedded Images 2 4:54 PM [facility] DERMATOPATHOLOGY LABORATORY Pathology/Cytolog y TISSUE SPECIMEN FROM SKIN / Unknown 08/13/2021 08/14/2021 2:07 PM [facility] Jr Charles MD LAB - PATHOLOGY/CYTOLOGY ORD ERABLES Final Result DERMATOPATHOLOGY LABORATORY [facility] Department of Dermatology [facility] [address] [place] [address], [address] [phone] documented in this encounter Visit Diagnoses Not on filedocumented in this encounter Care Teams Violin Repairer Relationship Specialty [place] [address] [place] [phone] PCP - General 05/01/08 documented as of this encounter
--- OUTSIDE RECORDS SUMMARY | 2025-01-30 14:29 | XMS_ITS | Data Portability ---
Author Organization [facility] [place] Address [address] [place] [address] [place] [address] Care Team Providers Care Blocker Automatic Name Role Phone RACHID FORRESTER Primary Care [...] a year unless there are new symptoms. [email or web address] Not available 06/09/2024 10:03:29 Plan of Treatment Reminders Order Date Submit Date Provider Last Modified By Organization Details Last Modified Time Details Appointments None recorded. Lab None recorded. Referral None recorded. Procedures None recorded. Surgeries None recorded. Imaging DEXA, axial skeleton + vertebral fracture assessment 2023 024 DEVI [facility], [address], [place], [address], 5 04:11:42 MAMMO, screening, digital, bilateral 2023 024 [facility], [address], [place], [address], 5 15:37:24 DEXA, axial skeleton + vertebral fracture assessment 2020 021 [email or web address] [facility], [address], [address] [address], [place], [address], 16:56:23 Medication Orders None recorded. Patient TargetsNo targets recorded. Patient InstructionsNo instructions recorded. Reason for Referral None Reported. Results Created Date Observation Date Name Description Value Unit Range Abnormal Flag Note LastModifiedBy Organization Detail LastModifiedTime 12/26/1912/25/2020 CBC w/ auto diff WBC 6.1 10'3/ uL 3.6-10 .2 Not Available [facility] (Lab) [address], [place], [address], 12/26/2020 05:50:14 12/26/1912/25/2020 CBC w/ auto diff RBC 4.60 10'6/ uL (based on docume nted legal sex) 4.10-5 .30 Not Available [facility] (Lab) [address], [place], [address], 12/26/2020 05:50:14 12/26/1912/25/2020 CBC w/ auto diff HGB 13.2 g/dL (based on docume nted legal sex) 11.9-1 5.8 Not Available [facility] (Lab) [address], [place], [address], 12/26/2020 05:50:14 12/26/1912/25/2020 CBC w/ auto diff HCT 41.8 % (based on docume nted legal sex) 37.4-4 8.3 Not Available [facility] (Lab) [address] [place], [address], 12/26/2020 05:50:14 12/26/1912/25/2020 CBC w/ auto diff MCV 92.0 fL 82.0-9 9.0 Not Available [facility] (Lab) [address] [place], [address], 12/26/2020 05:50:14 12/26/19 21 12/25/2020 CBC w/ auto diff MCH 29.0 pg 27.0-3 3.0 Not Available [facility] (Lab) [address], [place], [address], 12/26/2020 05:50:14 12/26/19 21 12/25/2020 CBC w/ auto diff MCHC 32.0 g/dL 32.0-3 6.0 Not Available [facility] (Lab) [address] [place] [place], [address], 12/26/2020 05:50:14 12/26/19 21 12/25/2020 CBC w/ auto diff RDW 13.0 % 11.0-1 5.0 Not Available [facility] (Lab) [address] [place] [place], [address], 12/26/2020 05:50:14 12/26/19 21 12/25/2020 CBC w/ auto diff plt 277 10'3/ uL 150-45 0 Not Available [facility] (Lab) [address] [place], [address], 12/26/2020 05:50:14 12/26/19 21 12/25/2020 CBC w/ auto diff MPV 11.5 fL Not Available [facility] (Lab) [address] [place], [address], 12/26/2020 05:50:14 12/26/19 21 12/25/2020 CBC w/ auto diff NRBC's 0.00 % 0 Not Available [facility] (Lab) [address] [place], [address], 12/26/2020 05:50:14 12/26/19 21 12/25/2020 CBC w/ auto diff absolute NRBCs 0.0 10'3/ uL 0 Not Available [facility] (Lab) [address] [place], [address], 12/26/2020 05:50:14 12/26/19 21 12/25/2020 CBC w/ auto diff neutrophils 48.0 % 37.0-7 2.0 Not Available [facility] (Lab) [address] [facility], [place], [address], 12/26/2020 05:50:14 12/26/19 21 12/25/2020 CBC w/ auto diff lymphocytes 30.0 % 16.0-4 8.0 Not Available [facility] (Lab) [address] [facility], [place], [address], 12/26/2020 05:50:14 12/26/19 21 12/25/2020 CBC w/ auto diff monocytes 11.0 % 4.0-14 .0 Not Available [facility] (Lab) [address] [facility], [place], [address], 12/26/2020 05:50:14 12/26/19 21 12/25/2020 CBC w/ auto diff eosinophils 9.0 % 0.0-9. 0 Not Available [facility] (Lab) [address] [place], [address], 12/26/2020 05:50:14 12/26/19 21 12/25/2020 CBC w/ auto diff basophils 2.0 % 0.0-2. 0 Not Available [facility] (Lab) [address] [place], [address], 12/26/2020 05:50:14 12/26/19 21 12/25/2020 CBC w/ auto diff immature granulocytes 0.0 % no define d refere nce range Not Available [facility] (Lab) [address] [place], [address], 12/26/2020 05:50:14 12/26/19 21 12/25/2020 CBC w/ auto diff absolute neutrophils 2.9 10'3/ uL 1.1-6. 0 Not Available [facility] (Lab) [address] [facility], [place], [address], 12/26/2020 05:50:14 12/26/19 21 12/25/2020 CBC w/ auto diff absolute lymphocytes 1.8 10'3/ uL 0.7-3. 4 Not Available [facility] (Lab) [address] [place], [address], 12/26/2020 05:50:14 12/26/19 21 12/25/2020 CBC w/ auto diff absolute monocytes 0.7 10'3/ uL 0.3-1. 0 Not Available [facility] (Lab) [address] [facility], [place], [address], 12/26/2020 05:50:14 12/26/19 21 12/25/2020 CBC w/ auto diff absolute eosinophils 0.6 10'3/ uL 0.0-0. 6 Not Available [facility] (Lab) [address] [facility], [place], [address], 12/26/2020 05:50:14 12/26/19 21 12/25/2020 CBC w/ auto diff absolute basophils 0.1 10'3/ uL 0.0-0. 1 Not Available [facility] (Lab) [address] [place], [address], 12/26/2020 05:50:14 12/26/19 21 12/25/2020 CBC w/ [...] resul ts are expec shaquille. Not Available [facility] (Lab) [address] [place], [address], 12/26/2020 05:50:14 12/26/19 21 12/25/2020 TSH, serum or plasm a TSH 0.02 uIU/m L 0.30-5 .33 low Not Available [facility] (Lab) [address] [place], [address], 12/26/2020 05:50:14 12/26/19 21 12/25/2020 phosp horus , serum or plasm a phosphorus 3.9 mg/dL 2.5-5. 0 Not Available [facility] (Lab) [address] [facility], [place], [address], 12/26/2020 05:50:15 12/26/19 21 12/25/2020 CMP, serum or plasm a sodium 140 mmol/ L 136-14 5 Not Available [facility] (Lab) [address] [place], [address], 12/26/2020 05:50:15 12/26/1912/25/2020 CMP, serum or plasm a potassium 4.5 mmol/ L 3.5-5. 1 Not Available [facility] (Lab) [address] [facility], [place], [address], 12/26/2020 05:50:15 12/26/1912/25/2020 CMP, serum or plasm a chloride 104 mmol/ L 98-107 Not Available [facility] (Lab) [address] [place], [address], 12/26/2020 05:50:15 12/26/1912/25/2020 CMP, serum or plasm a carbon dioxide 28 mmol/ L 21-31 Not Available [facility] (Lab) [address] [place], [address], 12/26/2020 05:50:15 12/26/1912/25/2020 CMP, serum or plasm a anion gap 8 mmol/ L 4-13 Not Available [facility] (Lab) [address] [place], [address], 12/26/2020 05:50:15 12/26/19 21 12/25/2020 CMP, serum or plasm a blood urea nitrogen 12 mg/dL 7-25 Not Available [facility] (Lab) [address] [place], [address], 12/26/2020 05:50:15 12/26/19 21 12/25/2020 CMP, serum or plasm a creatinine 0.71 mg/dL 0.60-1 .30 Not Available [facility] (Lab) [address] [facility], [place], [address], 12/26/2020 05:50:15 12/26/1912/25/2020 CMP, serum or plasm a GFR () 100 mL/mi n/1.7 3_m2 60-300 Not Available [facility] (Lab) [address] [place], [address], 12/26/2020 05:50:15 12/26/19 21 12/25/2020 CMP, serum or plasm a GFR (others) 83 mL/mi n/1.7 3_m2 60-300 Not Available [facility] (Lab) [address] [place], [address], 12/26/2020 05:50:15 12/26/19 21 12/25/2020 CMP, serum or plasm a calcium 9.5 mg/dL 8.6-10 .2 Not Available [facility] (Lab) [address] [place], [address], 12/26/2020 05:50:15 12/26/1912/25/2020 CMP, serum or plasm a glucose 86 mg/dL 70-100 Not Available [facility] (Lab) [address] [place], [address], 12/26/2020 05:50:15 12/26/19 21 12/25/2020 CMP, serum or plasm a protein, total 6.9 g/dL 6.4-8. 3 Not Available [facility] (Lab) [address] [facility], [place], [address], 12/26/2020 05:50:15 12/26/19 21 12/25/2020 CMP, serum or plasm a albumin 4.1 g/dL 3.5-5. 0 Not Available [facility] (Lab) [address] [place], [address], 12/26/2020 05:50:15 12/26/19 21 12/25/2020 CMP, serum or plasm a ALT 16 units /L 9-43 Not Available [facility] (Lab) [address] [place], [address], 12/26/2020 05:50:15 12/26/19 21 12/25/2020 CMP, serum or plasm a alkaline phosphatase 81 units /L 34-104 Not Available [facility] (Lab) [address] [place], [address], 12/26/2020 05:50:15 12/26/19 21 12/25/2020 CMP, serum or plasm a AST 17 units /L 13-39 Not Available [facility] (Lab) [address] [place], [address], 12/26/2020 05:50:15 12/26/19 21 12/25/2020 CMP, serum or plasm a bilirubin, total 0.5 mg/dL 0.2-1. 2 Not Available [facility] (Lab) [address] [place], [address], 12/26/2020 05:50:15 12/26/1912/25/2020 vitam in D, 25-hy droxy , total , serum vitamin D, 25-hydroxy, total 56.6 NG/mL 30-80 NOTE: Defic iency : <20 ng/mL Insuf ficie ncy: 20-29 ng/mL Optim um Level : 30-80 ng/mL Possi ble Toxic ity: >80 ng/mL Most patie nts with toxic ity have level s >150 ng/mL . Not Available [facility] (Lab) [address] [facility], [place], [address], 12/26/2020 05:50:15 12/26/19 21 12/25/2020 T4, free, serum T4, free 1.61 NG/dL 0.60-1 .40 high Not Available [facility] (Lab) [address], [place], [address], 12/26/2020 06:39:27 12/01/19 21 11/29/2020 MAMMO , scree chava, bilat eral No observ ation record ed. [facility] [address], [place], [address], 12/06/2020 12:44:51 12/14/19 21 DEXA, axial skele ton + verte bral fract ure asses sment No observ ation record ed. [facility] [address], [place], [address], 12/20/2020 11:17:42 12/14/19 21 DEXA, axial skele ton + verte bral fract ure asses sment No observ ation record ed. [facility] [address], [place], [address], 12/19/2020 10:45:08 03/05/20 22 03/05/2022 MAMMO , scree chava, bilat eral No observ ation record ed. [facility] [address], [place], [address], 03/13/2022 18:00:25 05/11/20 23 05/11/2023 MAMMO , scree chava, bilat eral No observ ation record ed. DE[facility] [address], [place], [address], 05/13/2023 17:14:54 09/08/19 25 09/08/2024 MAMMO , scree chava, bilat eral No observ ation record ed. [email or web address] [facility] [address], [place], [address], 09/26/2024 16:13:25 09/09/19 25 09/08/2024 MAMMO , scree chava, tomos ynthe sis, bilat eral No observ ation record ed. [facility] [address], [place], [address], 12/07/2024 15:54:30 10/14/19 25 10/13/2024 MAMMO , diagn ostic , digit al, unila teral No observ ation record ed. [email or web address] [facility] [address], [place], [address], 11/17/2024 15:09:31 10/15/19 25 10/13/2024 MAMMO , diagn ostic , tomos ynthe sis, unila teral No observ ation record ed. [facility] [address], [place], [address], 12/07/2024 15:56:58 Result Notes None recorded. Problems Name Problem SNOMED Code Status Onset Date Resolution Date Notes Provider Name and Address Organization Details Recorded Time Tomasa marrero medical examinat ion Completed 201112/25/2021 Routine gynecolog ical examinati on;Practi ce ID: [id number] Loni coker [facility] 2 09:35:54 Screenin g for malignan t neoplasm of cervix Completed 201112/25/2021 Pap Smear;Pra ctice ID: [id number] Loni coker [facility] 2 09:35:54 Screenin g for malignan t neoplasm of rectum Completed 201112/25/2021 Screening for malignant neoplasms of the rectum;Pr actice ID: [id number] Loni coker [facility] 2 09:35:54 Leukocyt osis [id number] Completed 201212/25/2021 LEUKOCYTO SIS NOS;Pract ice ID: [id number] Loni coker [facility] 2 09:35:54 Adult health examinat ion Completed 201312/25/2021 Routine general medical examinati on at a health care facility; Practice ID: 0001 Loni coker [facility] 2 09:35:[address] Concept Completed 201512/25/2021 Encntr for public address technician exam (general) (routine) w/o abn findings; Practice ID: [id number] Loni coker [facility] [address] 09:35:[address] Concept Completed 201712/25/2021 Encntr for general adult medical exam w/o abnormal findings; Recorded Elsewhere : No Locati on: [facility] So urce: EHR Chron ic: N Practic e ID: 0001 Bill able Time: 10:30:00 AM Loni coker [facility] 2 09:35:54 Cervicov aginal [id number] Completed 201712/25/2021 Unsatisfa ctory cytologic smear of cervix;Re corded Elsewhere : No Locati on: [facility] So urce: EHR Chron ic: N Practic e ID: 0001 Bill able Time: 10:30:00 AM Loni coker [facility] 2 09:35:54 Problem Notes None recorded. Procedures Surgical History Date Name Laterality Status Provider Name and Address Organization Details Recorded Time Most Recent Bone Density completed Loni Meyers [facility] 12/25/2021 10:11:35 1 Date of Last Mammogram completed Loni Meyers [facility] 12/25/2021 10:11:15 0 Date of Last Pap Smear completed [facility] 10/10/2020 14:29:04 ligation of bilateral fallopian tubes completed [facility] 10/10/2020 14:32:13 procedure on back completed [facility] 10/10/2020 14:32:19 LEEP completed [facility] 10/10/2020 14:32:24 Colonoscopy completed [facility] 10/10/2020 14:32:29 Imaging Results None recorded. Procedure Notes None recorded. Medical Equipment None Reported. Allergies Allergen ID Allergen Name Allergen Category Reaction Reaction Severity Criticality Documentation Date Start Date Code Code System Note Provider Name and Address Organization Details Recorded Time 13328 Product containin g penicilli n (product) medicatio n Not available Not available Not available 07/06/2020 89829 [id number] SNOMED React ion: Unkno wn; Comme nt: [facility]; Not Available [facility] 0 14:20:27 Medications Name Sig Start Date [...] ed Elsew e: Yes Loca tion: [facility] M odify By: [email or web address] DateTime : 02/25/20 11 12:08:48 PM Not Available Not Available Not Available levothyro xine 125 mcg tablet TAKE 1 TABLET BY MOUTH DAILY active Not Available Not Available No t Available Estrace 0.01% (0.1 mg/gram) vaginal cream insert (1G) by vaginal route every week 07/21 completed Prescrib ed Elsewher e: No Locat ion: Delaney cohen [facility] odify By: [email or web address] Encount er DateTime : 05/22/20 16 09:30:00 AM Not Available Not Available Not Available Vitamins and Minerals tablet active Prescrib ed Elsewher e: Yes Loca tion: [facility] cohen [facility] odify By: [email or web address] rosenthal DateTime : 03/17/20 [...] Elsewher e: Yes Loca tion: Delaney cohen [facility] odify By: [email or web address] Encount er DateTime : 03/17/20 12 03:30:00 PM Not Available Not Available Not Available Calcio Mirian 500 mg tablet active Prescrib ed Elsewher e: Yes Loca tion: Delaney cohen [facility] odify By: [email or web address] Encounte r DateTime : 02/25/20 11 12:08:48 PM Not Available Not Available Not Available trazodone 12/25 completed Not Available Not Available Not Available Vitamin D3 10 mcg (400 unit) capsule active Prescrib ed Elsewher e: Yes Loca tion: Delaney cohen [facility] odify By: [email or web address] Encounte r DateTime : 02/25/20 11 12:08:48 PM Not Available Not Available Not Available Xyzal 5 mg tablet take 1 tablet by oral route every day in the evening active Prescrib ed Elsewher e: Yes Loca tion: Delaney cohen [facility] odify By: [email or web address] Encount er DateTime : 07/21/19 20 09:00:00 AM Not Available Not Available Not Available WelChol 3.75 gram oral powder packet take 1 packet by oral route every day dissolve d in 120 to 240ml of water; stir and drink with a meal 03/17 completed Prescrib ed [facility] e: Yes Loca tion: [facility] odlisbet By: brodie schuler DateTime : 03/17/20 03:30:00 PM Not Available Not Available Not Available Contrave 8 mg-90 mg tablet,ex tended release active Not Available Not Available Not Available Vitals Date Recorded Body height Body mass index (BMI) Body weight Systolic And Diastolic Provider Name and Address Organization Details Last Updated DateTime 10/11/2020 170.18 cm 25.7 kg/m2 47491.15 g 127/74 mm[Hg] Sejal Pan [facility] 10/11/2020 09:30:48 Date Recorded Systolic And Diastolic Provider Name and Address Organization Details Last Updated DateTime 12/25/2021 124/74 mm[Hg] Laly Gavin, [facility]- [address], [place], [address], [facility] 12/25/2021 10:31:05 Date Recorded Body height Body mass index (BMI) Body weight Provider Name and Address Organization Details Last Updated DateTime 12/25/2021 166.37 cm 24.5 kg/m2 19198.14 g Loni Meyers [facility] 12/25/2021 10:09:47 Date Recorded Body height Body mass index (BMI) Body weight Systolic And Diastolic Provider Name and Address Organization Details Last Updated DateTime 06/09/2024 166.37 cm 28 kg/m2 87588.3 g 144/69 mm[Hg] Makayla Etienne [facility] 06/09/2024 10:06:29 Social History Question Answer Notes LastModified by Organizat ion Details LastModified Time Tobacco Smoking Status Never Smoker Loni Meyers [facility] 12/25/2021 10:12:10 Are You Blind Or Do You Have Difficulty Seeing? No Information n ot available 12/25/2021 What Is Your Level Of Caffeine Consumption? Occasional Information not available 12/25/2021 In The 14 Days Before Symptom Onset, Have You Had Close Contact With A Laboratory-confirm ed COVID-19 While That Case Was Ill? No [email or web address] Information n ot available 06/09/2024 In The 14 Days Before Symptom Onset, Have You Had Close Contact With A Person Who Is Under Investigation For COVID-19 While That Person Was Ill? No [email or web address] Information not available 06/09/2024 Have You Been To An Area Known To Be High Risk For COVID-19? No [email or web address] Information not available 06/09/2024 Are You Deaf [...] anxious, or unable to sleep at night)? [id number] Information not available 12/25/2021 Family History Relationship [...] SNOMED-CT Code Diagnosis ICD10 Code Diagnosis Note [id number] Laly Gavin [facility] [address],[facility] [place] [address] 10/11/2020 09:19:51 10/11/2020 10:17:18 Gynecologic examination [id number] Z01.419 Take Calcium with Vitamin D 12-1500mg daily. Do monthly self breast exams. It is advised to get annual flu shot in the fall and she could obtain at [facility] or [facility] care clinic. If you haven't received the [...] re-evaluat e the need. Postmenopa usal osteopenia 858628909 Z78.0 [id number] Laly Gavin [facility] [address] [address] 12/25/2021 09:43:32 12/25/2021 11:23:25 Gynecologic examination 87362331 Z01.419 Take Calcium with Vitamin D 12-1500mg daily. Do monthly self breast exams. It is advised to get annual flu shot in the fall and she could obtain at [facility] or [facility] care clinic. If you haven't received the [...] UTD PCP Routine Labs UTD PCPMammo ordered [id number] ARUNA Hussein [place] [address] [address] 06/09/2024 09:56:48 06/09/2024 10:36:24 Gynecologic examination 21086028 Z01.419 WWEpap sentdeclin ed STI screenmamm ogram [...] answered. Screening for malignant neoplasm of breast 109483720 Z12.39 Screening for osteoporosis 810064652 Z13.820 Health Concerns Section Related Observation LastModified by Organization Detai ls LastModified Time None Recorded Concern Status LastModified by Organization Details LastModified Time None Recorded Advance Directives Directive None Recorded Payers Insurance Date Sequence Insurance Name Policy Number Policy Batres Covered Member ID Batres Member ID Guarantor Name 10/14/2024 1 [employer] (MEDICARE REPLACEMENT/ ADVANTAGE - PPO) [id number] Annemarie Ramosgis [id number] Annemarie Sarmiento Elena 10/14/2024 1 [place] Annemarie Sarmiento Elena [id number] Annemarie Sarmiento Elena 12/25/2021 2 [place] [id number] Benedicto Cohen Elena [id number] Annemarie Sarmiento Elena 04/06/2024 2 [place] [id number] Benedicto Renee Elena [id number] Annemarie Ramosgis Notes Date Note Type Note Provider Name and Address Organization Details Recorded Time 10/11/2020 text/html Annual Etl Analyst Post-MenopausalRe ported bypatient.Menopau bob Symptoms:no menopausal symptoms; [...] recent colonoscopy; needs to schedule bone density Laly Gavin, [facility]EL[facility] [address], [place], [address], [facility] 10/11/2020 10:01:43 12/25/2021 text/html Annual Etl Analyst Post-MenopausalRe ported bypatient.Menopau bob Symptoms:no menopausal symptoms; [...] recent colonoscopy ARUNA Jaimes- [address], [place], [address], [facility] 12/25/2021 10:33:14 06/09/2024 text/html Annual Etl Analyst Post-MenopausalRe ported bypatient.Menopau bob Symptoms:no menopausal symptoms; [...] in 2002 last pap 07/2019 : - ARUNA Puente [address], [place], [address], [facility] 06/09/2024 10:35:07 OBGyn Episode Ob Episode Information Episode Created Date Number of Fetuses Patient Bloodtype Patient rh Status Prepregnancy Weight lbs Domestic Partner Domestic Partner Phone Father Name University Administrative Assistant Status 10/11/19 21 1 CLOSED Fetus Data [...] Domestic Partner Domestic Partner Phone Father Name University Administrative Assistant Status 10/11/19 21 1 CLOSED Fetus Data [...]
--- OUTSIDE RECORDS SUMMARY | 2025-01-30 14:29 | XMS_ITS | Encounter Summary ---
Author Organization [employer] Address 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
== END 2025-01-30 14:25 | disposition home or self-care (01) ==
LOC: ANHIMG 14:26
PROVIDERS: PCP Internal Medicine; Visit Provider Nurse Practitioner
DX: Z13.820 Encounter for screening for osteoporosis (principal); M85.89 Other specified disorders of bone density and structure, multiple sites
CPT/HCPCS: 77080

== ENCOUNTER 2025-02-16 12:10 | Outpatient (CLI) | payer MEDICARE, SELFPAY ==
--- NOTE | ~2025-02-16 | XR_ITS ---
Cervical Spine: AP, lateral, open-mouth views Clinical History: Pain Findings: The normal lordotic curve is maintained. No fracture or subluxation. There is moderate dege nerative disc narrowing at C2-C3, C4-C5, C5-C6, and C6-C7. There is mild facet arthropathy.. Pre-vert ebral soft tissues are unremarkable. Impression: Moderate degenerative spondylosis overall, as detailed above. Reviewed, dictated and finalized at location M. Impression: Moderate degenerative spondylosis overall, as detailed above.
== END 2025-02-16 12:11 | disposition home or self-care (01) ==
LOC: MICIMG 12:12
PROVIDERS: PCP Internal Medicine; Visit Provider Internal Medicine
DX: R20.0 Anesthesia of skin (principal); R20.2 Paresthesia of skin; M47.892 Other spondylosis, cervical region
CPT/HCPCS: 72050

== ENCOUNTER 2025-04-18 09:29 | Outpatient (CLI) | payer MEDICARE, SELFPAY ==
--- OUTSIDE RECORDS SUMMARY | 2025-04-18 10:06 | XMS_ITS | Encounter Summary ---
Author Organization [facility] Health Address [address] [place] [address] Care Team Providers Care Senior Manufacturing Test Engineer Name Role Phone Pito Malave MD Primary Care Provider [phone] Encounter Details Date Type Department Care Team (Late st Contact Info) Description 08/14/[address] [facility] DermPath Lab [address] [place] [id number] Jr Charles MD [address] [place] [address] Social History Tobacco Use Types Packs/Day Years Used Date Smoking Tobacco: Former Alcohol Use Standard Drinks/Week Comments Yes 0 (1 standard drink = 0.6 oz pur e alcohol) Comments Unknown Sex and Gender Information Value Date Recorded Sex Assigned at Not on file Legal Sex Female 5:57 PM PROCUREMENT INSPECTOR Gender Identity Not on file Sexual Orientation Not on file documented as of this encounter Plan of Treatment Not on file documented as of this encounter Procedures Procedure Name Priority Date/Time Associated Diagnosis Comments DERMATOPATHOLOGY Routine 08/13/2021 12:0 0 AM PROCUREMENT INSPECTOR documented in this encounter Results * DERMATOPATHOLOGY (08/13/2021 12:00 AM PROCUREMENT INSPECTOR) Case Report Dermatopathology Report Case: [id number] Authorizing Provider: Jr Charles MD Collected: 08/13/2021 12:00 AM Ordering Location: [facility] DermPath Lab Received: 08/14/2021 02:07 PM Pathologist: Theron Brush MD Specimen: Skin, right preauricular skin 2 4:54 PM [facility] DERMATOPATHOLOGY LABORATORY Final Diagnosis Specimen A. SKIN, right preauricular skin: HYPERPLASTIC (HYPERTROPHIC) ACTINIC KERATOSIS, ACANTHOLYTIC (L57.0) SEBORRHEIC KERATOSIS, IRRITATED (L82.0) 2 4:54 PM [facility] DERMATOPATHOLOGY LABORATORY at [address] [facility] Clinical History R/O BCC 2 4:54 PM [facility] DERMATOPATHOLOGY LABORATORY Gross Description Specimen A: Received is one formalin filled container labeled with the patient's name and designated right preauricular skin. The specimen consists of a shave biopsy measuring 31x50u2 mm. Jar 0. 4:54 PM [facility] DERMATOPATHOLOGY LABORATORY Microscopic Description Specimen A. SKIN, right preauricular skin: There is hyperkeratosis alternating with parakeratosis. There is epidermal hyperplasia with disorderly maturation of keratinocytes with nuclear pleomorphism confined to the lower half of the epidermis. There is acanthosis consisting of fairly uniform squamous cells with eosinophilic cytoplasm and squamous eddies. 2 4:54 PM [facility] DERMATOPATHOLOGY LABORATORY Disclaimer An external and internal positive and negative controls are appropriate for the histochemical, immunohistochemical and immunofluorescence stain(s) in this case (if any), except where stated explicitly. The performance characteristics of the stain(s) cited in this report were developed and its performance characteristic determined by the Dermatopathology Laboratory at [facility], directed by Dr. Emerald Brush. These tests need not be, and therefore are not, approved by the [place] Food and Drug Administration. The tests are used for clinical purposes. Billing Codes Specimen Charges Stain Charges 80571 1 2 4:54 PM [facility] DERMATOPATHOLOGY LABORATORY Embedded Images 2 4:54 PM [facility] DERMATOPATHOLOGY LABORATORY Pathology/Cytolog y TISSUE SPECIMEN FROM SKIN / Unknown 08/13/2021 08/14/2021 2:07 PM [facility] Jr Charles MD LAB - PATHOLOGY/CYTOLOGY ORD ERABLES Final Result DERMATOPATHOLOGY LABORATORY [facility] Department of Dermatology [facility] Medicine [address] [place] [address], [address] [phone] documented in this encounter Visit Diagnoses Not on filedocumented in this encounter Care Teams Senior Manufacturing Test Engineer Relationship Specialty [place] [address] [place] [phone] PCP - General 05/01/08 documented as of this encounter
--- OUTSIDE RECORDS SUMMARY | 2025-04-18 10:06 | XMS_ITS | Clinical Summary ---
Author Organization [employer] [facility] Address [address] 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
--- OUTSIDE RECORDS SUMMARY | 2025-04-18 10:06 | XMS_ITS | Clinical Summary ---
Author Organization [facility] Address [address] [place] [address] Care Team Providers Care Cook Boat Name Role Phone Pito Malave MD Primary Care Provider [phone] Source Comments [facility] Affiliates and Associated Physician Practices is amultiple site organization consisting of ambulatory clinics and hospital sitesin [place], [place], [place] and [place]. This disclosure is being madepursuant to the Care Everywhere program and may not contain all information available regarding this patient. 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
--- OUTSIDE RECORDS SUMMARY | 2025-04-18 10:06 | XMS_ITS | Encounter Summary ---
Author Organization [employer] Address [address] [place] [address] Care Team Providers Care Block Setter Gypsum Name Role Phone Unavailable Primary Care Provider [...] on file Legal Sex Female 3:14 AM APPEALS EXAMINER Gender Identity Not on file Sexual Orientation Not on file documented as of this encounter Plan of Treatment Not on file documented as of this encounter Visit Diagnoses Diagnosis Laboratory examination- Primary documented in this encounter
--- OUTSIDE RECORDS SUMMARY | 2025-04-18 10:06 | XMS_ITS | Encounter Summary ---
Author Organization [facility] Health Address [address] [facility] [place] [address] Care Team Providers Care Gunnery/Ordnance Officer Name Role Phone Pito Malave MD Primary Care Provider Encounter Details Date Type Department Care Team (Late st Contact Info) Description 04/09/2018 Lab Requisition [facility] Care DermPath Lab [address] [facility] [place] [phone] Jr Charles MD [address] [place] [address] Social History Tobacco Use Types Packs/Day Years Used Date Smoking Tobacco: Former Alcohol Use Standard Drinks/Week Comments Yes 0 (1 standard drink = 0.6 oz pur e alcohol) Comments Unknown Sex and Gender Information Value Date Recorded Sex Assigned at Not on file Legal Sex Female 5:57 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 Jar 0. Specimen B: Received is one formalin filled container labeled with the patient's name and designated left lower pretibia. The specimen consists of a punch biopsy measuring [id number], bisected Jar 0. 3:22 PM CDT DERMATOPATHOLOGY [...] characteristic determined by the Dermatopathology Laboratory at [facility] [place]. These tests need not be, and therefore are not, approved by the [place] Food and Drug Administration. The tests are used for clinical purposes. Billing Codes Specimen Charges Stain Charges 30837 94343 1 1 95133 83331 77081 66348 1 1 1 1 8 3:22 PM CDT DERMATOPATHOLOGY LABORATORY Embedded Images 8 3:22 PM CDT DERMATOPATHOLOGY LABORATORY Pathology/Cytology TISSUE SPECIMEN FROM SKIN / Unknown 04/08/2018 04/09/2018 12:07 PM CDT Miscellaneous samples (specimen) TISSUE SPECIMEN FROM SKIN / Unknown 04/08/2018 04/09/2018 12:07 PM CDT Jr Charles MD LAB - PATHOLOGY/CYTOLOGY ORD ERABLES Final Result DERMATOPATHOLOGY LABORATORY [facility] - Department of Dermatology [address] [place] [address], 5th Floor Lab [address] [phone] documented in this encounter Visit Diagnoses Not on filedocumented in this encounter Care Teams Gunnery/Ordnance Officer Relationship Specialty Start Date End Date Pito Malave MD [address] [place] [address] PCP - General 05/01/08 documented as of this encounter
--- NOTE | 2025-04-18 11:30 | NEURO_ITS ---
Impression: # Complains of numbness of hands, left more than right. Non- diabetic. ? # Bilateral ulnar neuropathy across the elbows, left more than right. ? # Needle/EMG exam abnormal in left 1st DI and ADM. Nerve Conduction Studies ?Stim Site NR Peak (ms) P-T Amp (?V) Site1 Site2 Delta-P (ms) Dist (cm) Keven (m/s) Left Median Anti Sensory (2-3nd Digit) Wrist ? 3.7 19.2 Wrist 2-3nd Digit 3.7 14.0 38 Wrist ? 3.5 19.7 Wrist 2-3nd Digit 3.7 14.0 38 Right Median Anti Sensory (2-3nd Digit) Wrist ? 3.2 18.1 Wrist 2-3nd Digit 3.2 14.0 44 Wrist ? 3.2 17.0 Wrist 2-3nd Digit 3.2 14.0 44 Left Radial Anti Sensory (Base 1st Digit) Wrist ? 2.3 15.6 Wrist Base 1st Digit 2.3 0.0 Right Radial Anti Sensory (Base 1st Digit) Wrist ? 2.2 17.2 Wrist Base 1st Digit 2.2 0.0 Left Ulnar Anti Sensory (5th Digit) Wrist ? 2.7 27.7 Wrist 5th Digit 2.7 14.0 52 Right Ulnar Anti Sensory (5th Digit) Wrist ? 2.7 18.2 Wrist 5th Digit 2.7 14.0 52 ?Stim Site NR Onset (ms) O-P Amp (mV) Site1 Site2 Delta-0 (ms) Dist (cm) Keven (m/s) Left Median Motor (Abd Poll Brev) Wrist ? 3.5 5.8 Elbow Wrist 4.6 25.0 54 Elbow ? 8.1 4.7 Right Median Motor (Abd Poll Brev) Wrist ? 3.5 4.7 Elbow Wrist 4.5 25.0 56 Elbow ? 8.0 3.8 Left Ulnar Motor (Abd Dig Minimi) Wrist ? 2.5 4.9 A Elbow Wrist 7.0 29.0 41 A Elbow ? 9.5 3.1 B Elbow Wrist 5.5 22.0 40 B Elbow ? 8.0 1.8 Right Ulnar Motor (Abd Dig Minimi) Wrist ? 2.1 5.7 A Elbow Wrist 6.1 30.0 49 A Elbow ? 8.2 4.3 B Elbow Wrist 3.9 21.0 54 B Elbow ? 6.0 5.1 F Wave Studies ?NR F-Lat (ms) L-R F-Lat (ms) Left Median (Mrkrs) (Abd Poll Brev) ? 27.21 2.16 Right Median (Mrkrs) (Abd Poll Brev) ? 29.38 2.16 Left Ulnar (Mrkrs) (Abd Dig Min) ? 29.18 0.78 Right Ulnar (Mrkrs) (Abd Dig Min) ? 28.40 0.78 Electromyography ?Side Muscle Nerve Root Ins Act Fibs Amp Dur Recrt Comment Right 1stDorInt Ulnar C8-T1 Nml Nml Nml Nml Nml Left 1stDorInt Ulnar C8-T1 Nml Nml Nml >12ms +1 Right ABD Dig Min Ulnar C8-T1 Nml Nml Nml Nml Nml Left ABD Dig Min Ulnar C8-T1 Nml Nml Nml >12ms +1 Left Abd Poll Brev Median C8-T1 Nml Nml Nml Nml Nml Right Abd Poll Brev Median C8-T1 Nml Nml Nml Nml Nml Right Abd Poll Long Radial (Post Int) C7-8 Nml Nml Nml Nml Nml Left Abd Poll Long Radial (Post Int) C7-8 Nml Nml Nml Nml Nml Left BrachioRad Radial C5-6 Nml Nml Nml Nml Nml Right BrachioRad Radial C5-6 Nml Nml Nml Nml Nml Right Ext Digitorum Radial (Post Int) C7-8 Nml Nml Nml Nml Nml Left Ext Digitorum Radial (Post Int) C7-8 Nml Nml Nml Nml Nml Left Ext Indicis Radial (Post Int) C7-8 Nml Nml Nml Nml Nml Right Ext Indicis Radial (Post Int) C7-8 Nml Nml Nml Nml Nml Left FlexPolLong Median (Ant Int) C7-8 Nml Nml Nml Nml Nml Right FlexPolLong Median (Ant Int) C7-8 Nml Nml Nml Nml Nml Right PronatorTeres Median C6-7 Nml Nml Nml Nml Nml Left PronatorTeres Median C6-7 Nml Nml Nml Nml Nml ?
== END 2025-04-18 09:30 | disposition home or self-care (01) ==
LOC: ANHNEURO 09:29
PROVIDERS: PCP Internal Medicine; Visit Provider Internal Medicine
DX: G56.23 Lesion of ulnar nerve, bilateral upper limbs (principal); R94.131 Abnormal electromyogram [EMG]
CPT/HCPCS: 95886; 95911

== ENCOUNTER 2025-04-26 14:27 | Outpatient (CLI) | payer MEDICARE, SELFPAY ==
--- NOTE | 2025-04-26 14:35 | ECG_ITS ---
Test Date: 2025-04-26 14:45:49 Measurements Intervals [place] Rate: 84 P: 50 WV: 150 QRS: 35 QRSD: 116 T: 58 QT: 386 QTc: 458 Interpretive Statements SINUS RHYTHM INCOMPLETE RIGHT BUNDLE BRANCH BLOCK BASELINE ARTIFACT- I, II, III, AVR, AVL, AVF BORDERLINE ECG No previous ECG available for comparison Electronically Signed On 04-26-2025 15:02:59 CDT by Christopher Shaw D.O.
== END 2025-04-26 14:28 | disposition home or self-care (01) ==
PROVIDERS: PCP Internal Medicine; Visit Provider Anesthesiology
DX: Z01.818 Encounter for other preprocedural examination (principal); E78.5 Hyperlipidemia, unspecified; Z87.891 Personal history of nicotine dependence; R94.31 Abnormal electrocardiogram [ECG] [EKG]
CPT/HCPCS: 93005

== ENCOUNTER 2025-05-04 08:34 | Day surgery (SDC) | payer MEDICARE, SELFPAY ==
[2025-04-26 13:19] VITALS: BMI 27.6
--- NOTE | 2025-05-04 06:44 | WPDHPUPDATE1 ---
History and Physical Update Update Date/Time: 05/04/25 06:44 Patient seen and examined in pre-operative holding area. No interval change in medical history or symptoms. Patient recalls previous discussion of benefits and alternatives to procedure. Continues to desire to proceed with left cubital tunnel release. Reviewed procedure, post-op expectations and risks including but not limited to bleeding, infection, injury to tendon/nerve/vessel, decreased hand function, stiffness, RSD, no change or worsening of symptoms. I discussed the possible use of assistants and their participation in the case. Patient stated understanding and signed the consent form wishing to proceed.
--- NOTE | 2025-05-04 06:45 | W.PM.PROC2 ---
Procedure Note - Detailed Date of Procedure 05/04/25 Pre-op Diagnosis Left Cubital Tunnel Syndrome Post-op Diagnosis Same Procedure Performed left CuTR Surgeon Zoraida Lui MD Truck Mechanic Apprentice Kelechi Martinez PA-C Anesthesia MAC Description of Procedure INFORMED CONSENT:The patient was seen and examined and marked in the pre-op area.? The patient signed the consent form. PROCEDURE IN DETAIL: The patient taken back to OR on the stretcher in supine position. Time out performed with anesthesia, surgeon and staff agreeing on patient's name site and surgery to be performed SCDs were placed on the lower extremities and inflated A tourniquet was placed on {left} upper extremity and antibiotics given IV After anesthesia administered sedation I injected {8}cc 1%lido with epi and 0.5% marcaine plain at the operative site The?{left upper extremity}?was prepped and draped in sterile fashion the??{left upper extremity} was??exsanguinated with Esmarch bandage and tourniquet inflated to 250mmHg I next proceeded with making a longitudinal incision between two heads for flexor carpi ulnaris at end of {left} cubital tunnel with 15 blade scalpel.? Littler scissors were used to spread down to FCU fascia.? An incision was made in FCU fascia and ulnar nerve identified exiting cubital tunnel.? I proceeded with complete retrograde release of the cubital tunnel including 7cm proximal for the intermuscular septum.? The nerve appeared healthy with visible vaso nervorum.? There was no subluxation on full elbow range of motion. ? I irrigated with normal saline and closure with 4-0 monocryl for dermis and subcuticular. The incision was covered with Dermabond then 4x4s, zonia, and a posterior elbow splint for patient safety, security and comfort and secured with miki bandages after the tourniquet was let down noting the hand was warm and well perfused.? Patient awaken from anesthesia and transferred to recovery in stable condition Complications - none EBL- 1cc Disposition - home in stable condition Kelechi Martinez PA-C was essential for positioning, retraction, closure and dressing placement. [facility] Billing Surgery - Charge Forward: Surgery Billing ([id number] for kelechi)
--- OUTSIDE RECORDS SUMMARY | 2025-05-04 08:53 | XMS_ITS | Encounter Summary ---
Author Organization [facility] Health Address [address] [place] [address] Care Team Providers Care Yarn Salvager Name Role Phone Pito Malave MD Primary Care Provider [phone] Encounter Details Date Type Department Care Team (Late st Contact Info) Description 08/14/2021 Lab Requisition [facility] DermPath Lab [address] [place] [phone] Jr Charles MD [address] [place] [address] Social History Tobacco Use Types Packs/Day Years Used Date Smoking Tobacco: Former Alcohol Use Standard Drinks/Week Comments Yes 0 (1 standard drink = 0.6 oz pur e alcohol) Comments Unknown Sex and Gender Information Value Date Recorded Sex Assigned at Not on file Legal Sex Female 5:57 PM CUSTOMER SOLUTIONS REPRESENTATIVE Gender Identity Not on file Sexual Orientation Not on file documented as of this encounter Plan of Treatment Not on file documented as of this encounter Procedures Procedure Name Priority Date/Time Associated Diagnosis Comments DERMATOPATHOLOGY Routine 08/13/2021 12:0 0 AM CUSTOMER SOLUTIONS REPRESENTATIVE documented in this encounter Results * DERMATOPATHOLOGY (08/13/2021 12:00 AM CUSTOMER SOLUTIONS REPRESENTATIVE) Case Report Dermatopathology Report Case: [id number] Authorizing Provider: Jr Charles MD Collected: 08/13/2021 12:00 AM Ordering Location: [facility] DermPath Lab Received: 08/14/2021 02:07 PM Pathologist: Theron Brush MD Specimen: Skin, right preauricular skin 2 4:54 PM [facility] DERMATOPATHOLOGY LABORATORY Final Diagnosis Specimen A. SKIN, right preauricular skin: HYPERPLASTIC (HYPERTROPHIC) ACTINIC KERATOSIS, ACANTHOLYTIC (L57.0) SEBORRHEIC KERATOSIS, IRRITATED (L82.0) 2 4:54 PM [facility] DERMATOPATHOLOGY LABORATORY at [address] [facility] Clinical History R/O BCC 2 4:54 PM [facility] DERMATOPATHOLOGY LABORATORY Gross Description Specimen A: Received is one formalin filled container labeled with the patient's name and designated right preauricular skin. The specimen consists of a shave biopsy measuring 38r48w3 mm. Jar 0. 4:54 PM [facility] DERMATOPATHOLOGY LABORATORY Microscopic Description Specimen A. SKIN, right preauricular skin: There is hyperkeratosis alternating with parakeratosis. There is epidermal hyperplasia with disorderly maturation of keratinocytes with nuclear pleomorphism confined to the lower half of the epidermis. There is acanthosis consisting of fairly uniform squamous cells with eosinophilic cytoplasm and squamous eddies. 2 4:54 PM [facility] DERMATOPATHOLOGY LABORATORY Disclaimer An external and internal positive and negative controls are appropriate for the histochemical, immunohistochemical and immunofluorescence stain(s) in this case (if any), except where stated explicitly. The performance characteristics of the stain(s) cited in this report were developed and its performance characteristic determined by the Dermatopathology Laboratory at [facility], directed by Dr. Emerald Brush. These tests need not be, and therefore are not, approved by the [place] Food and Drug Administration. The tests are used for clinical purposes. Billing Codes Specimen Charges Stain Charges 82291 1 2 4:54 PM [facility] DERMATOPATHOLOGY LABORATORY Embedded Images 2 4:54 PM [facility] DERMATOPATHOLOGY LABORATORY Pathology/Cytolog y TISSUE SPECIMEN FROM SKIN / Unknown 08/13/2021 08/14/2021 2:07 PM [facility] Jr Charles MD LAB - PATHOLOGY/CYTOLOGY ORD ERABLES Final Result DERMATOPATHOLOGY LABORATORY [facility] Department of Dermatology [facility] Medicine [address] [place] [address], [address] Floor [address] [phone] documented in this encounter Visit Diagnoses Not on filedocumented in this encounter Care Teams Yarn Salvager Relationship Specialty [place] [address] [place] [phone] PCP - General 05/01/08 documented as of this encounter
--- OUTSIDE RECORDS SUMMARY | 2025-05-04 08:53 | XMS_ITS | Encounter Summary ---
Author Organization [employer] Address 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
--- OUTSIDE RECORDS SUMMARY | 2025-05-04 08:53 | XMS_ITS | Clinical Summary ---
Author Organization [facility] Address [address] 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
--- OUTSIDE RECORDS SUMMARY | 2025-05-04 08:53 | XMS_ITS | Encounter Summary ---
Author Organization [facility] Address [address] [address] Care Team Providers Care Printer Floor Covering Assistant Name Role Phone Pito Malave MD Primary Care Provider [phone] Encounter Details Date Type Department Care Team (Late st Contact Info) Description 04/09/2018 Lab Requisition 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 Jar 0. Specimen B: Received is one formalin filled container labeled with the patient's name and designated left lower pretibia. The specimen consists of a punch biopsy measuring [id number], bisected Jar 0. 3:22 PM CDT DERMATOPATHOLOGY [...] characteristic determined by the Dermatopathology Laboratory at [facility]. These tests need not be, and therefore are not, approved by the [place] Food and Drug Administration. The tests are used for clinical purposes. Billing Codes Specimen Charges Stain Charges 62256 06952 1 1 97473 [id number] 35640 99510 1 1 1 1 8 3:22 PM CDT DERMATOPATHOLOGY LABORATORY Embedded Images 8 3:22 PM CDT DERMATOPATHOLOGY LABORATORY Pathology/Cytology TISSUE SPECIMEN FROM SKIN / Unknown 04/08/2018 04/09/2018 12:07 PM CDT Miscellaneous samples (specimen) TISSUE SPECIMEN FROM SKIN / Unknown 04/08/2018 04/09/2018 12:07 PM CDT Jr Charles MD LAB - PATHOLOGY/CYTOLOGY ORD ERABLES Final Result DERMATOPATHOLOGY LABORATORY [facility] - Department of Dermatology [address] [place] [address], [address] Floor Lab [address] [phone] documented in this encounter Visit Diagnoses Not on filedocumented in this encounter Care Teams Printer Floor Covering Assistant Relationship Specialty Start Date End Date Pito Malave MD [address] [place] [phone] PCP - General 05/01/08 documented as of this encounter
--- OUTSIDE RECORDS SUMMARY | 2025-05-04 08:54 | XMS_ITS | Clinical Summary ---
Author Organization [facility] Address [address] [place] [address] Care Team Providers Care Professional Sports Scout Name Role Phone Pito Malave MD Primary Care Provider [phone] Source Comments [facility] Affiliates and Associated Physician Practices is amultiple site organization consisting of ambulatory clinics and hospital sitesin [place], [place], [place]. This disclosure is being madepursuant to the Care Everywhere program and may not contain all information available regarding this patient. 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
[2025-05-04 08:56] VITALS: BP 117/72; PULSE 75; RESP 16; TEMP 36.4; O2SAT 98
[2025-05-04] MEDS: ACETAMINOPHEN 500 MG TABLET 1000 MG PO (09:01)
[2025-05-04] MEDS: LACTATED RINGERS 1,000 ML 30 ML IV CONT (09:03)
--- NOTE | 2025-05-04 09:46 | P.PNAN_ITS ---
Anes - Initial Pre Proc Eval Procedure: Operation Date: 05/04/25 10:15 Proposed Procedures p Left Cubital Tunnel Release - Zoraida Lui MD Date/Time: 05/04/25 09:46 Surgeon: oZraida Lui MD Pre Op Diagnosis: Left Cubital Tunnel Syndrome Patient Data Age: 69 Gender: F Height: 1.68 m Weight: 78.5 kg Last Vital Signs Temp 97.6 F 05/04/25 08:56 Pulse 75 05/04/25 08:56 Resp 16 05/04/25 08:56 BP 117/72 05/04/25 08:56 Pulse Ox 98 05/04/25 08:56 O2 Del Method Room Air 05/04/25 08:56 Allergies Allergy/AdvReac Type Severity Reaction Status Date / Time Cephalosporins Allergy Unknown Rash Verified 05/04/25 08:55 penicillin G Allergy Unknown Rash Verified 05/04/25 08:55 Penicillins Allergy Unknown Rash Verified 05/04/25 08:55 Home Medications ?Medication ?Instructions ?Recorded ?Confirmed ?Type calcium carb-ergocalciferol (vit 1 tablet PO BID 10/1805/04/25 History D2) 500 mg (1,250 mg)-200 unit tablet cholecalciferol (vitamin D3) 25 25 mcg PO DAILY 05/04/25 History mcg (1,000 unit) tablet benzonatate 200 mg capsule 200 mg PO TID PRN cough #40 caps 09/26/24 05/04/25 Rx bupropion HCl 150 mg 24 hr tablet, 150 mg PO QAM #90 t abs 01/25/25 05/04/25 Rx extended release (Wellbutrin XL) trazodone 50 mg tablet See Rx Instructions .Route 0 04/10/25 05/04/25 Rx .COMPLEX #180 tabs levothyroxine 125 mcg tablet 125 mcg PO DAILY 04/26/25 05/04/25 History rosuvastatin 10 mg tablet 10 mg PO DAILY 04/26/2504/19 History alendronate 70 mg tablet (Fosamax) 70 mg PO WEEKLY #14 tabs 05/01/25 05/04/25 Rx tramadol 50 mg tablet 50 mg PO Q6H PRN pain #12 ta bs 05/04/25 Rx Patient hx anesthesia problems: none Family hx anesthesia problems: none Results Review: All pre-operative results and documents have been reviewed as part of the pre- operative evaluation. [facility] Past Medical History Medical History (Updated 04/25/25 @ 10:28 by Zoraida Lui MD) Depression Numbness of fingers Wrist pain, right Encounter for Medicare annual wellness exam DJD (degenerative joint disease) BMI 24.0-24.9, adult BMI 23.0-23.9, adult Subcutaneous mass Sinus symptom Sinus drainage Hx of toxic shock syndrome History of basal cell cancer Ganglion cyst Back pain Neck pain Vitamin D deficiency BMI 25.0-25.9,adult BMI 28.0-28.9,adult BMI 26.0-26.9,adult BMI 27.0-27.9,adult Insomnia Elevated homocysteine Colon cancer screening Hip pain, right Encounter for routine adult health examination without abnormal findings Restrictive airway disease BMI 30.0-30.9,adult Encounter for preventive health examination 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 Scoliosis Lateral epicondylitis of left elbow Hypothyroidism (acquired) Hyperlipidemia Family History Family History Father Hypertension Other Family history of lung disease Family history of osteoarthritis Social History Social History Years smoked: 30 Smoking status: Former smoker Tobacco type: cigarettes Second hand tobacco smoke exposure: Yes Smoking end date: 07/20/00 Alcohol intake: current Substance use type: does not use Lack of Transportation: No Lack of Food: Never True Current Housing: I Have Housing Concerned About Future Housing: No Difficulty Paying Gas/Electric Bills: No Difficulty Paying for Meds: No Currently Unemployed: Decline to Answer Education: High School Diploma/GED Difficulty w/ Childcare or Family Care: No Living arrangements: with family Gender identity (if verbalized by the patient): Female Spiritual care concerns: No Anes - Eval Final PreProcedure Day of Procedure 05/04/25 09:46 Heart: regular rate and rhythm Lungs: clear to auscultation Airway: Mallampati scale class II Neurological: alert and oriented Last oral intake: >/= 8 hours ASA classification: II Anesthetic plan: proceed Anesthesia type and monitoring: monitored anesthesia care Results Review: All pre-operative results and documents have been reviewed as part of the pre- operative evaluation. Informed Consent: The patient's anesthetic plan and its attendant risks and benefits were discussed with the patient/family/POA. Questions were solicited and answers provided to the satisfaction of the patient/family/POA.
[2025-05-04] MEDS: CLINDAMYCIN 900 MG/NS 50 ML 900 MG/50 ML PIGGYBACK 50 MG IVPB (10:12)
[2025-05-04] MEDS: BUPivacaine HCL 0.5% 10 ML AMP (10:20)
[2025-05-04] MEDS: LIDO 1%/EPINEPHRINE 1:100,000 20 ML VIAL (10:21)
[2025-05-04 10:32] VITALS: BP 89/52; PULSE 70; RESP 16; O2SAT 95
[2025-05-04 11:00] VITALS: BP 91/66; PULSE 68; RESP 16; O2SAT 97
== END 2025-05-04 11:18 | disposition home or self-care (01) ==
LOC: ASC 08:38
PROVIDERS: PCP Internal Medicine; Visit Provider Plastic Surgery
PROC: (CPT 64718; principal; 2025-05-04 10:15)
DX: G56.22 Lesion of ulnar nerve, left upper limb (principal)
CPT/HCPCS: 64718

== ENCOUNTER 2025-05-26 09:46 | Outpatient (CLI) | payer MEDICARE, SELFPAY ==
--- NOTE | ~2025-05-26 | XR_ITS ---
EXAMINATION: XR knee LT min 4V, 05/26/2025 9:50 [facility]ER HISTORY: M25.562 - Pain in left knee COMPARISON: No comparisons available. Findings: No acute fracture or malalignment. No significant degenerative changes. Soft tissues unremarkable. Impression: No acute fracture or malalignment. Reviewed, dictated and finalized at location P. E MILLER Impression: No acute fracture or malalignment.
--- NOTE | ~2025-05-26 | XR_ITS ---
EXAMINATION: XR foot LT min 3V, 05/26/2025 9:50 OBSERVER GRAVITY PROSPECTING HISTORY: M79.672 - Pain in left foot COMPARISON: No comparisons available. Findings: No acute fracture or malalignment. No significant degenerative changes. Soft tissues unremarkable. Impression: No acute fracture or malalignment. Reviewed, dictated and finalized at location P. RVER GRAVITY PROSPECTING Impression: No acute fracture or malalignment.
== END 2025-05-26 09:47 | disposition home or self-care (01) ==
PROVIDERS: PCP Internal Medicine; Visit Provider Internal Medicine
DX: M23.8X2 Other internal derangements of left knee (principal); M79.672 Pain in left foot; G89.29 Other chronic pain
CPT/HCPCS: 73564; 73630